=== PATIENT | female | born 1990 | race Caucasian/White ===

== ENCOUNTER 2020-07-18 16:19 | Emergency (ER) | payer BC, SELFPAY ==
[2020-07-18 16:23] VITALS: BP 136/95; PULSE 102; RESP 20; TEMP 35.8; O2SAT 100
--- NOTE | 2020-07-18 16:49 | ED.FEMALEGU ---
HPI - Female Genitourinary General Chief complaint: Vaginal Bleeding Stated complaint: vaginal bleeding post surgery 2/4 Time Seen by Provider: 07/18/20 16:31 Source: patient Mode of arrival: ambulatory Limitations: no limitations History of Present Illness HPI Narrative: A 30-year-old female comes into the emergency department today with complaints of vaginal bleeding. Patient states that it started today and was very heavy. She noted that she had a recent LEEP procedure done on the fourth of this month. Patient states that she had minimal bleeding after the procedure. She states starting today that the bleeding got much heavier. She notes that she has been through 3 pads/tampons earlier today. She notes several clots that have been passed. Related Data Allergies Allergy/AdvReac Type Severity Reaction Status Date / Time ciprofloxacin Allergy Mild Verified 03/24/19 14:47 azithromycin Allergy Unknown eye Verified 03/24/19 14:47 swelling Penicillins Allergy Unknown Verified 03/24/19 14:47 CIPROFLOXACIN HCL Allergy Mild Uncoded 03/24/19 14:47 Review of Systems Review of Systems: Narrative: CONSTITUTIONAL: Denies fever, chills, or sweats. EYES: Denies visual changes, redness, or discharge. ENT: Denies rhinorrhea, congestion, sore throat, or otalgia. CARDIOVASCULAR: Denies chest pain, palpitations, or edema. RESPIRATORY: Denies cough or dyspnea. GASTROINTESTINAL: Denies abdominal pain, nausea, vomiting, or diarrhea. GENITOURINARY: Denies dysuria or hematuria. SKIN: Denies rash or itching. MUSCULOSKELETAL: Denies back pain, joint pain, or myalgia. NEUROLOGIC: Denies headache, numbness, dizziness, or weakness. PSYCHIATRIC: Denies anxiety or depression. Exam Narrative: Exam Narrative: GENERAL: Well-appearing, well-nourished, and in no acute distress. HEAD: Normocephalic, atraumatic. EYES: PERRLA and EOMI. ENT: Nares clear, no rhinorrhea or epistaxis. Mucous membranes moist. Oropharynx without tonsillar hypertrophy exudate or other lesions. Bilateral TMs pearly buckner nonbulging NECK: Supple. No adenopathy or masses. No carotid bruits or JVD CHEST: Clear to auscultation. No respiratory distress. No wheezes rales or rhonchi HEART: Regular rate and rhythm. No murmur heard. Normal peripheral pulses. ABDOMEN: Soft, nontender, nondistended, normal active bowel sounds. : Chaperoned by TOOTIE Andino. Normal externa genitalia. Large amount of blood and clots within vaginal vault. After evacuation, bleed seen coming through os, LEEP scarring seen. No to minimal bleeding from cervix. EXTREMITIES: Normal range of motion. No edema. SKIN: Warm, dry, no rash. NEURO: No focal deficits. Alert and oriented x3. PSYCH: Normal mood and affect. Course Reevaluation(s) Reevaluation #1: Reevaluated patient provided care update. Discussed the lab results with her. At this time I feel she is safe to discharge. Patient recommended to follow-up with her surgeon. Time: 17:43 Vital Signs Vital signs: Vital Signs Temperature 35.8 C L 07/18/20 16:23 Pulse Rate 102 H 07/18/20 16:23 Respiratory Rate 20 07/18/20 16:23 Blood Pressure 136/95 H 07/18/20 16:23 Pulse Oximetry 100 07/18/20 16:23 Temperature 35.8 C L 07/18/20 16:23 Pulse Rate 102 H 07/18/20 16:23 Respiratory Rate 20 07/18/20 16:23 Blood Pressure 136/95 H 07/18/20 16:23 Pulse Oximetry 100 07/18/20 16:23 MDM - Female Genitourinary MDM Narrative Medical decision making narrative: In brief this 30-year-old female came into the emergency department with complaints of heavy vaginal bleeding. Patient recently had a LEEP procedure. She also had her Mirena removed prior to this. Review of the patient's laboratory data was reassuring. Pelvic examination did show that the bleeding appeared to me to be coming through the os rather than from the cervix. I feel that because of the patient's Mirena removal and that withdrawal from the hormones she is likely starting a me
[2020-07-18 17:02] LABS: Basophils Absolute Auto 0.1 K/mm3 (0.0-0.1); Basophils Percent Auto 0.4 % (0.2-1.2); Eosinophils Absolute Auto 0.1 K/mm3 (0-0.3); Eosinophils Percent Auto 0.9 % (0-4.4); Hematocrit 47.6 % (37.0-47.0); Hemoglobin 16.5 g/dL (12.0-15.0); Immature Granulocyte Absolute 0.04 K/mm3 (0.00-0.031); Immature Granulocyte Percent A 0.3 % (0-0.5); Lymphocytes Absolute Auto 2.23 K/mm3 (0.9-3.2); Lymphocytes Percent Auto 15.8 % (18.3-44.2); Mean Corpuscular HGB Conc 34.7 g/dl (32-36); Mean Corpuscular Hemoglobin 36.1 pg (26-34); Mean Corpuscular Volume 104.2 fl (80-100); Mean Platelet Volume 11.2 fl (7.4-10.4); Monocytes Absolute Auto 0.6 K/mm3 (0.1-0.6); Monocytes Percent Auto 4.3 % (2.6-8.5); Neutrophils Percent Auto 78.3 % (45.5-73.1); Platelet Count Result 198 k/mm3 (150-375); Red Blood Count 4.57 M/mm3 (4.2-5.4); Red Cell Distribution Width 13.1 % (11.5-14.5); White Blood Count 14.1 K/mm3 (4.5-10.0)
[2020-07-18 17:22] LABS: Alanine Aminotransferase 33 U/L (4-35); Albumin Level 4.6 g/dL (3.5-5.1); Alkaline Phosphatase 108 U/L (38-126); Anion Gap 5 mmol/L (8-16); Aspartate Amino Transferase 32 U/L (14-36); Bilirubin,Total 0.5 mg/dL (0.2-1.3); Blood Urea Nitrogen 10 mg/dL (7-17); Calcium 9.7 mg/dL (8.4-10.2); Carbon Dioxide 30 mmol/L (22-30); Chloride 104 mmol/L (98-107); Estimated CRCL calculation 99 ml/min; Estimated Glomerular Filt Rate > 60; Glucose 110 mg/dL (65-105); Sodium 139 mmol/L (137-145)
[2020-07-18 17:30] LABS: Potassium 3.5 mmol/L (3.4-5.0)
[2020-07-18 17:44] LABS: Add Urine Microscopic? YES; Appearance Urine Cloudy (Clear); Bilirubin Urine Negative (Negative); Blood Urine 3+ (Negative); Color Urine Red (Yellow); Glucose Urine UA Negative (Negative); Ketones Urine Negative (Negative); Leukocyte Esterase Ur Trace LEU/UL (Negative); Mucus Urine Few /lpf; Nitrate Urine Negative (Negative); Protein Urine 2+ mg/dL (Negative); RBC Urine >75 /hpf (0-2); Specific Grav Ur 1.023 (1.001-1.035)
[2020-07-18 17:52] VITALS: BP 133/94; PULSE 97; O2SAT 98
== END 2020-07-18 17:53 | disposition home or self-care (01) ==
PROVIDERS: Emergency Provider Emergency Medicine; PCP Internal Medicine
DX: N93.8 Other specified abnormal uterine and vaginal bleeding (principal)
CPT/HCPCS: 36415; 80053; 81001; 81025; 85025; 99283; A9270

== ENCOUNTER 2020-10-25 11:48 | Inpatient (IN) | payer BC, SELFPAY ==
[2020-10-25] VITALS (22 sets, daily range): BP systolic 107–118; BP diastolic 68–83; PULSE 110–135; RESP 14–32; TEMP 36.2–37.1; O2SAT 97–100; BMI 22.5
--- NOTE | ~2020-10-25 | US_ITS ---
EXAMINATION: US abdomen limited DATE: 10/29/2020 10:01 INDICATION: Abnormal liver function tests. TECHNIQUE: Multiple grayscale and Doppler ultrasound images of the abdomen were obtained. COMPARISON: CT abdomen and pelvis 10/28/2020 FINDINGS: The visualized portions of the head, body, and tail of the pancreas are normal. The liver i s normal without focal lesion. No liver surface nodularity. There is normal flow in main portal vein. The gallbladder is normal in size and contains gallstones. No gallbladder wall thickening. There is no sonographic Telles sign. The common duct is normal and measures 2 mm. IMPRESSION: 1. Cholelithiasis. No evidence of acute cholecystitis. Reviewed, dictated and finalized at location A.
--- NOTE | ~2020-10-25 | US_ITS ---
EXAMINATION: US pelvic complete w TV DATE: 10/25/2020 15:23 INDICATION: Pelvic pain TECHNIQUE: Multiple transabdominal and endovaginal sonographic images of the pelvis were obtained. COMPARISON: CT from today FINDINGS: The uterus measures 7.9 x 4 x 4.7 cm. The endometrial complex measures 3 mm. The right ovar y measures 3.9 x 2.9 x 3.1 cm. The left ovary measures 3.2 x 2.1 x 2.5 cm. There is normal vascular f low in the ovaries. There is no free fluid in the pelvis. IMPRESSION: 1. No sonographic correlate for the patient's symptoms. Reviewed, dictated and finalized at location A.
--- NOTE | ~2020-10-25 | CT_ITS ---
EXAMINATION: CT abdomen pelvis w con INDICATION: Abdominal bloating and elevated liver function tests TECHNIQUE: Computed tomographic images of the abdomen and pelvis were obtained after the administrati on of 100 cc of Omnipaque 350 intravenous contrast. The dose-length product (DLP) was 416.73 mGy-cm. Automated exposure control and iterative reconstruction technique were employed. COMPARISON: 10/25/2020 FINDINGS: Minimal dependent atelectasis is present in the lung bases. The heart size is normal. There are small pleural effusions. The liver, spleen, pancreas, and adrenal glands are normal. There is un changed enlargement of the kidneys which demonstrate persistence striated nephrograms. There is persi stent urothelial enhancement of the ureters and renal pelves. A small amount of ascites has developed . No pathologically enlarged abdominal or pelvic lymph nodes are identified. There is no free intrape ritoneal gas or evidence of bowel obstruction. The visualized osseous structures are unremarkable. IMPRESSION: 1. Persistent bilateral pyelonephritis. Reviewed, dictated and finalized at location A.
--- NOTE | ~2020-10-25 | XR_ITS ---
EXAMINATION: XR chest 1V portable DATE: 10/25/2020 13:04 INDICATION: Fever. TECHNIQUE: A single frontal view of the chest was obtained. COMPARISON: Chest 2 views 09/17/2014 FINDINGS: The chest demonstrates clear lungs without pneumonia, pleural effusion, or pneumothorax. Th e heart size is normal. IMPRESSION: 1. No acute cardiopulmonary disease. Reviewed, dictated and finalized at location B.
--- NOTE | ~2020-10-25 | CT_ITS ---
EXAMINATION: CTA chest PE abdomen pel DATE: 10/25/2020 14:30 INDICATION: Pelvic cramping. Dizziness. Fever. Tachycardia. TECHNIQUE: Computed tomography angiography (CTA) of the chest was performed with 100 mL Omnipaque-350 intravenous contrast timed to evaluate the pulmonary arteries. Coronal maximum intensity projection 3D-reconstructions were created by the technologist. Computed tomography (CT) of the abdomen and pelv is was performed with intravenous contrast. Automated exposure control and iterative reconstruction t echnique were employed. The dose-length product was 539.21 mGy-cm. COMPARISON: None. FINDINGS: CTA chest: There is mild scarring at the lung apices. There is mild dependent atelectasis bilaterally . There is a pneumatocele in left upper lobe. No pleural effusion. The heart size is normal. No peric ardial effusion. There is no pulmonary embolus. CT abdomen and pelvis: The liver, gallbladder, spleen, pancreas, and adrenal glands are normal. The k idneys demonstrate striated nephrograms. There is urothelial hyperemia in the renal pelvises. There a re no dilated loops of bowel. The appendix is normal. There are no pathologically enlarged lymph node s. There is no free intraperitoneal fluid. The bones are unremarkable. IMPRESSION: 1. Bilateral pyelonephritis. 2. No pulmonary embolus. Reviewed, dictated and finalized at location B.
--- NOTE | ~2020-10-25 | US_ITS ---
EXAMINATION: US venous doppler [facility] DATE: 10/26/2020 10:12 INDICATION: Tachycardia TECHNIQUE: Kaba scale images without and with compression and Doppler images of the bilateral lower e xtremity veins were obtained. COMPARISON: None FINDINGS: The right common femoral vein, profunda femoral vein, femoral vein, popliteal vein, peroneal trunk, p osterior tibial veins, and greater saphenous vein are patent. The left common femoral vein, profunda femoral vein, femoral vein, popliteal vein, peroneal trunk, po sterior tibial veins, and greater saphenous vein are patent. IMPRESSION: 1. Patent bilateral lower extremity veins. No evidence of deep venous thrombosis. Reviewed, dictated and finalized at location A. IMPRESSION: 1. Patent bilateral lower extremity veins. No evidence of deep venous thrombosi s.
[2020-10-25 12:15] LABS: Basophils Absolute Auto 0.1 K/mm3 (0.0-0.1); Basophils Percent Auto 0.4 % (0.2-1.2); Eosinophils Absolute Auto 0.1 K/mm3 (0-0.3); Eosinophils Percent Auto 0.4 % (0-4.4); Hematocrit 35.9 % (37.0-47.0); Hemoglobin 12.7 g/dL (12.0-15.0); Immature Granulocyte Absolute 1.14 K/mm3 (0.00-0.031); Immature Granulocyte Percent A 8.2 % (0-0.5); Lymphocytes Absolute Auto 0.62 K/mm3 (0.9-3.2); Lymphocytes Percent Auto 4.5 % (18.3-44.2); Mean Corpuscular HGB Conc 35.4 g/dl (32-36); Mean Corpuscular Hemoglobin 36.9 pg (26-34); Mean Corpuscular Volume 104.4 fl (80-100); Monocytes Absolute Auto 0.5 K/mm3 (0.1-0.6); Monocytes Percent Auto 3.3 % (2.6-8.5); Neutrophils Absolute Auto 11.6 K/mm3 (1.3-6.7); Neutrophils Percent Auto 83.2 % (45.5-73.1); Platelet Count Result 144 k/mm3 (150-375); Red Blood Count 3.44 M/mm3 (4.2-5.4); Red Cell Distribution Width 15.6 % (11.5-14.5); White Blood Count 13.9 K/mm3 (4.5-10.0)
--- NOTE | 2020-10-25 12:18 | ED.ABDPAIN ---
HPI - Abdominal Pain General Chief Complaint: Abdominal Pain Stated Complaint: cramping, fever, DENT Time Seen by Provider: 10/25/20 11:55 Source: patient and RN notes reviewed Mode of arrival: ambulatory Limitations: no limitations History of Present Illness HPI narrative: This is a 30 year old female who presents for evaluation fever and abdominal pain since Sunday. She states she had a tubal ligation performed on 09/09/[address] Foreman at [place]. She reports she has been doing well and she had some mild bleeding. She denies having any bleeding or vaginal discharge in a 1 week. She states she has been having lower abdominal pain that she describes severe menstrual cramps. She is reports chills, fatigue and fever. She denies chest pain or shortness of breath. she has noticed that her heart rate is fast. She also reports body aches. She has been taking alternating doses of tylenol and ibuprofen for her fever . She last took tylenol at 4 am this morning and she took ibuprofen at 9 am this morning. She reports having a fever at time. Related Data Allergies Allergy/AdvReac Type Severity Reaction Status Date / Time azithromycin Allergy Severe Anaphylaxis Verified 10/25/20 18:14 ciprofloxacin Allergy Mild Difficulty Verified 10/25/20 18:14 Breathing Penicillins Allergy Mild Hives Verified 10/25/20 18:14 cephalexin [From Keflex] Allergy Blurry Verified 10/25/20 18:14 Vision Review of Systems Review of Systems: All systems reviewed & are unremarkable except as noted in HPI and below Constitutional: Constitutional: Reports chills, Reports fatigue and Reports fever(s) ENT: Denies sore throat Cardiovascular: Cardiovascular: Denies chest pain and Reports rapid heart rate Respiratory: Respiratory: Reports cough, Denies dyspnea and Denies wheezing Gastrointestinal: Gastrointestinal: Reports abdominal pain, Denies diarrhea and Denies vomiting Musculoskeletal: Musculoskeletal: Denies back pain and Reports muscle cramps Neurologic: Reports headache(s) Endocrine: Endocrine: Reports polydipsia PMFSH Surgical History Surgical History H/O LEEP H/O tubal ligation Social History Social History Years smoked: 15 Smoking status: Current every day smoker Tobacco type: cigarettes Alcohol intake: never Substance use: never Spiritual care concerns: No Exam Const: General: no acute distress and alert Orientation/consciousness: patient oriented x3 Eyes: EOM: EOMs intact bilaterally Chest: Chest palpation & inspection: normal inspection of the chest Resp: Effort & Inspection: normal respiratory effort and no retractions Auscultation: clear to auscultation bilaterally Cardio: Rate: regular rate Rhythm: regular rhythm Heart sounds: no murmurs GI: GI Palp: Yes Soft to palpation, Yes Tenderness to palpation present (GI) and No Guarding due to palpation present (GI) Auscultation: normal bowel sounds : Speculum Exam - Vagina: normal vaginal discharge Speculum Exam - Cervix: normal appearance of the cervix and Cervical os closed Bimanual Exam- Adnexa, other: no masses Other: no CMT Back/Spine/Pelvis: Back: no CVA tenderness Skin: General skin exam: normal color Rashes: no rashes Neuro: General: patient oriented x3, moves all extremities and CN's II-XI intact bilaterally Course Reevaluation(s) Reevaluation #1: Patient has received IVF, potassium supplementation, IV antibiotics. HR had some mild improvement but she continues to be tachycardic. She is nontoxic appearing so she will be admitted to medical floor at this time. pelvic cultures will be sent. Date: 10/25/20 Time: 15:45 Consultations Consultation #1: I Discussed with Fatuma patient evaluation. She has been tachycardia with pyelonephritis on CT. She has been given rocephin. She accepts patient to hospitalist taryn
[2020-10-25 12:25] LABS: Alanine Aminotransferase 13 U/L (4-35); Albumin Level 3.6 g/dL (3.5-5.1); Alkaline Phosphatase 177 U/L (38-126); Anion Gap 7 mmol/L (8-16); Aspartate Amino Transferase 23 U/L (14-36); Bilirubin,Total 0.9 mg/dL (0.2-1.3); Blood Urea Nitrogen 17 mg/dL (7-17); Calcium 9.3 mg/dL (8.4-10.2); Carbon Dioxide 28 mmol/L (22-30); Chloride 96 mmol/L (98-107); Estimated CRCL calculation 59 ml/min; Estimated Glomerular Filt Rate 58; Glucose 95 mg/dL (65-105); Lipase 30 U/L (23-300); Potassium 2.9 mmol/L (3.4-5.0); Sodium 131 mmol/L (137-145)
[2020-10-25] MEDS: ONDANSETRON INJ 4 MG/2 ML VIAL IV PUSH (12:55)
[2020-10-25] MEDS: SODIUM CHLORIDE 0.9% IV 1,000 ML 999 ML IV CONT ×2 (12:55→13:54)
[2020-10-25 13:00] LABS: Add Urine Microscopic? YES; Appearance Urine Clear (Clear); Bacteria Urine Trace /hpf; Bilirubin Urine Negative (Negative); Blood Urine 1+ (Negative); Color Urine Yellow (Yellow); Glucose Urine UA Negative (Negative); Ketones Urine Negative (Negative); Leukocyte Esterase Ur 1+ LEU/UL (Negative); Nitrate Urine Negative (Negative); Protein Urine 1+ mg/dL (Negative); Specific Grav Ur 1.006 (1.001-1.035); Squamous Epithelial Cell Urine Rare /hpf (Few); Urobilinogen Urine Negative mg/dL (<2.0)
[2020-10-25 13:02] LABS: Lactic Acid Reflex 1.1 mmol/L (0.7-2.1)
--- NOTE | 2020-10-25 13:14 | PC.NURSE ---
called main lab @1300 talked to lilo to add ck, pt, inr, ptt, d-dimer
[2020-10-25 13:22] LABS: Prothrombin Time 13.9 Seconds (11.1-14.7)
[2020-10-25 13:23] LABS: Creatine Kinase < 20 U/L (30-135)
[2020-10-25 13:23] LABS: Partial Thromboplastin Time 36.3 SECONDS (22.3-36.8)
[2020-10-25 13:25] LABS: D Dimer 2.47 ug/mL (<0.48)
[2020-10-25] MEDS: LACTATED RINGERS 1,000 ML 999 ML IV CONT (15:32)
--- NOTE | 2020-10-25 16:19 | PC.NURSE ---
EDP at bedside for pelvic exam.
[2020-10-25] MEDS: POTASSIUM CHLORIDE 20 MEQ TABLET 40 MEQ PO (16:20)
[2020-10-25] MEDS: IBUPROFEN IV 800 MG/200 ML 800 MG/200 ML BAG 400 MG IVPB (16:20)
--- NOTE | 2020-10-25 18:04 | ADMGEN ---
This patient, Judy Davis, was admitted to 2 Medical Room 253-01. Patient/family oriented to hospital policies and general routines including ID bracelet, bed and alarms, visiting hours, pain management, procedures, bathroom and other care routines, personal items, smoking policy, room service/diet, and visiting hours. Information on how to activate the Rapid Response Team has been discussed. Patient/Family are encouraged to report perceived risks to care and to ask questions if they do not understand what they are told or what they should do.
[2020-10-25] MEDS: LACTATED RINGERS 1,000 ML 125 ML IV CONT (18:19)
--- NOTE | 2020-10-25 21:24 | PM.IMHP ---
H&P: HPI History of Present Illness Date/Time: 10/25/20 21:24 Chief Complaint: Abdominal cramps Narrative: This is a 30-year-old female with known significant past medical history patient is a current everyday smoker she used to smoke a pack to 2 packs a day but now is down to 5 cigarettes daily sometimes down to 4 cigarettes. Patient presented today to the emergency room due to having abdominal cramps for the last 3 days decreased appetite fevers chills lower back pain some nausea but no vomiting no diarrhea no cough no sputum production no shortness of breath. Patient has been in her usual state of health up until these. Preliminary workup was significant for CT of thorax abdomen and pelvis with bilateral pyelonephritis. Also a BMP showed a potassium of 2.9. A trans vaginal ultrasound was unremarkable. Review of Systems Review of Systems: Narrative: Patient presented to the emergency room due to abdominal pain and back pain fevers chills decreased appetite Constitutional: Constitutional: Reports chills, Reports fever(s) and Reports poor appetite Eyes: Eyes: Denies change in vision ENT: Denies nasal congestion, Denies nasal discharge and Denies nasal obstruction Cardiovascular: Cardiovascular: Denies irregular heart rhythm, Denies lightheadedness, Denies palpitations and Denies dyspnea Respiratory: Respiratory: Denies cough, Denies dyspnea and Denies wheezing Gastrointestinal: Gastrointestinal: Reports abdominal pain, Reports GI cramping, Denies diarrhea, Reports nausea and Denies vomiting Genitourinary: Genitourinary: Reports flank pain Musculoskeletal: Musculoskeletal: Denies muscle cramps and Denies muscle weakness Integumentary/Breasts: Skin/Breast: Denies rash Neurologic: Denies focal weakness and Denies Sensory deficit (Neuro) Psychiatric: Psychiatric: Denies no additional psychiatric complaints Endocrine: Endocrine: Denies no additional endocrine complaints Hematologic/Lymphatic: Hematologic/Lymphatic: Denies no additional hematologic/lymphatic complaints Allergic/Immunologic: Allergic/Immunologic: Denies no additional allergic/immunologic complaints [facility] Surgical History Surgical History H/O LEEP H/O tubal ligation Social History Social History Years smoked: 15 Smoking status: Current every day smoker Tobacco type: cigarettes Alcohol intake: never Substance use: never Spiritual care concerns: No Meds Home Medications and Allergies Allergies Allergy/AdvReac Type Severity Reaction Status Date / Time azithromycin Allergy Severe Anaphylaxis Verified 10/25/20 18:14 ciprofloxacin Allergy Mild Difficulty Verified 10/25/20 18:14 Breathing Penicillins Allergy Mild Hives Verified 10/25/20 18:14 cephalexin [From Keflex] Allergy Blurry Verified 10/25/20 18:14 Vision Vital Signs Vital Signs - 24 hr 10/25/20 11:50 10/25/20 11:58 10/25/20 11:59 Temperature 98.7 F Pulse Rate 135 H 132 H 134 H Respiratory Rate 16 21 H 18 Blood Pressure 113/79 118/83 Pulse Oximetry 100 10/25/20 12:00 10/25/20 12:01 10/25/20 12:15 Temperature Pulse Rate 131 H 130 H 132 H Respiratory Rate 19 20 20 Blood Pressure 109/79 Pulse Oximetry 10/25/20 12:16 10/25/20 12:22 10/25/20 12:31 Temperature 98.7 F Pulse Rate 133 H 112 H 129 H Respiratory Rate 17 16 22 H Blood Pressure 107/76 113/79 108/79 Pulse Oximetry 99 10/25/20 14:32 10/25/20 14:45 10/25/20 15:16 Temperature Pulse Rate 122 H 120 H 124 H Respiratory Rate 20 18 32 H Blood Pressure Pulse Oximetry 98 97 98 10/25/20 15:35 10/25/20 15:49 10/25/20 16:13 Temperature Pulse Rate 123 H 125 H 128 H Respiratory Rate 23 H 25 H 20 Blood Pressure Pulse Oximetry 99 99 100 10/25/20 16:15 10/25/20 16:24 10/25/20 16:30 Temperature Pulse Rate 128 H 124 H 122 H Respiratory Rate 20 24 H 25
[2020-10-26] VITALS (13 sets, daily range): BP systolic 106–133; BP diastolic 68–86; PULSE 99–130; RESP 12–21; TEMP 36.3–38.5; O2SAT 95–100
[2020-10-26] MEDS: LACTATED RINGERS 1,000 ML 125 ML IV CONT ×3 (02:51→20:16)
[2020-10-26 05:18] LABS: Basophils Absolute Auto 0.1 K/mm3 (0.0-0.1); Basophils Percent Auto 0.5 % (0.2-1.2); Eosinophils Percent Auto 0.2 % (0-4.4); Hematocrit 30.8 % (37.0-47.0); Hemoglobin 11.1 g/dL (12.0-15.0); Immature Granulocyte Absolute 0.14 K/mm3 (0.00-0.031); Immature Granulocyte Percent A 1.1 % (0-0.5); Immature Platelet Fraction Pct 5.9 % (0.9-11.2); Lymphocytes Absolute Auto 0.56 K/mm3 (0.9-3.2); Lymphocytes Percent Auto 4.2 % (18.3-44.2); Mean Corpuscular Hemoglobin 37.2 pg (26-34); Mean Corpuscular Volume 103.4 fl (80-100); Mean Platelet Volume 11.3 fl (7.4-10.4); Monocytes Absolute Auto 0.6 K/mm3 (0.1-0.6); Monocytes Percent Auto 4.5 % (2.6-8.5); Neutrophils Absolute Auto 11.8 K/mm3 (1.3-6.7); Neutrophils Percent Auto 89.5 % (45.5-73.1); Platelet Count Result 121 k/mm3 (150-375); Red Blood Count 2.98 M/mm3 (4.2-5.4); Red Cell Distribution Width 15.4 % (11.5-14.5); White Blood Count 13.2 K/mm3 (4.5-10.0)
[2020-10-26 05:29] LABS: Alanine Aminotransferase 14 U/L (4-35); Albumin Level 2.5 g/dL (3.5-5.1); Alkaline Phosphatase 190 U/L (38-126); Anion Gap 6 mmol/L (8-16); Aspartate Amino Transferase 31 U/L (14-36); Bilirubin,Total 1.5 mg/dL (0.2-1.3); Blood Urea Nitrogen 13 mg/dL (7-17); Calcium 8.4 mg/dL (8.4-10.2); Carbon Dioxide 22 mmol/L (22-30); Chloride 107 mmol/L (98-107); Estimated CRCL calculation 64 ml/min; Estimated Glomerular Filt Rate > 60; Glucose 72 mg/dL (65-105); Potassium 3.1 mmol/L (3.4-5.0); Sodium 135 mmol/L (137-145)
[2020-10-26] MEDS: POTASSIUM CHLORIDE 20 MEQ TABLET 40 MEQ PO (08:41)
--- NOTE | 2020-10-26 11:10 | PM.IMPN ---
Progress Note: A&P Assessment and Plan (1) Pyelonephritis: Code(s): N12 - Tubulo-interstitial nephritis, not specified as acute or chronic Status: Acute Assessment and Plan: CT showing pyelonephritis -UA somewhat underwhelming, await urine culture -blood cultures pending -no urinary symptoms, positive CVA tenderness -last fever 10/26 at 4:00 a.m. -await urine culture and sensitivities. Continue ceftriaxone -consider infectious disease consult if she does not improve -Pain meds adjusted (2) Sepsis: Code(s): A41.9 - Sepsis, unspecified organism Status: Acute Assessment and Plan: Evident by leukocytosis, tachycardia, and fever -likely due to pyelonephritis as seen on the CT and consistent with her symptoms on exam -blood cultures pending -patient had a tubal ligation last month and has poor dentition. The seem less likely to be causing the fever/infection. -await urine culture -consider infectious disease consult if patient does not improve -elevated D-dimer likely due to infection/sepsis. No sign of PE or DVT. (3) ERWIN (acute kidney injury): Code(s): N17.9 - Acute kidney failure, unspecified Status: Acute Assessment and Plan: Improving -continue IV fluids -monitor daily labs (4) Tobacco dependence: Code(s): F17.200 - Nicotine dependence, unspecified, uncomplicated Status: Acute Assessment and Plan: Nicotine patch as needed -patient was educated to quit smoking Time Spent With Patient Time with patient: 25 - 35 minutes Subjective Date/time seen: 10/26/20 11:10 Interval history: Pt is a 30-year-old female here for pyelonephritis. Patient was seen today and states she is feeling better than yesterday but still in pain. She said most of her pain is now her back. She has no further abdominal cramping but just mostly back pain. She describes yesterday that she had abdominal cramping and back pain. She has had no dysuria or hematuria that she knows of. She also denies vaginal discharge, bleeding or new sexual partners. She continues to have his tachycardia but no chest pain, shortness of breath, nausea, vomiting or leg swelling. She said she had a tubal ligation early last month with no real issues with that. She has had a bit of a headache which resolved with tylenol yesterday. Review of Systems Review of Systems: All systems reviewed & are unremarkable except as noted in HPI and below Exam Narrative: Exam Narrative: General: Well developed well nourished patient in NAD HEENT: normocephalic Neck: supple Neuro: Alert and oriented x4 CV: Tachycardic. Telemetry shows sinus tachycardia 118 Resp:CTA Abd: Soft, non distended. Some pain to palpation to the left and right lower quadrants. Positive bowel sounds. Positive CVA tenderness Extremities: No swelling, erythema, or pain to palpation. Objective Data Vital Signs Vital Signs: Vital Signs - 24 hr 10/25/20 11:50 10/25/20 11:58 10/25/20 11:59 Temperature 98.7 F Pulse Rate 135 H 132 H 134 H Respiratory Rate 16 21 H 18 Blood Pressure 113/79 118/83 Pulse Oximetry 100 10/25/20 12:00 10/25/20 12:01 10/25/20 12:15 Temperature Pulse Rate 131 H 130 H 132 H Respiratory Rate 19 20 20 Blood Pressure 109/79 Pulse Oximetry 10/25/20 12:16 10/25/20 12:22 10/25/20 12:31 Temperature 98.7 F Pulse Rate 133 H 112 H 129 H Respiratory Rate 17 16 22 H Blood Pressure 107/76 113/79 108/79 Pulse Oximetry 99 10/25/20 14:32 10/25/20 14:45 10/25/20 15:16 Temperature Pulse Rate 122 H 120 H 124 H Respiratory Rate 20 18 32 H Blood Pressure Pulse Oximetry 98 97 98 10/25/20 15:35 10/25/20 15:49 10/25/20 16:13 Temperature Pulse Rate 123 H 125 H 128 H Respiratory Rate 23 H 25 H 20 Blood Pressure Pulse Oximetry 99 99 100 10/25/20 16:15 10/25/20 16:24 10/25/20 16:30 Temperature Pulse Rate 128 H 124 H 122 H Respiratory Rat
[2020-10-26] MEDS: ACETAMINOPHEN 325 MG TABLET 650 MG PO (15:34)
[2020-10-26] MEDS: HYDROcodone/acetaminophen (*CRX) 5-325 MG TABLET 1 TAB PO (17:24)
[2020-10-26] MEDS: ONDANSETRON INJ 4 MG/2 ML VIAL IV PUSH (17:24)
[2020-10-27] VITALS (9 sets, daily range): BP systolic 120–130; BP diastolic 70–85; PULSE 90–119; RESP 16–20; TEMP 37.3–38.3; O2SAT 94–98
[2020-10-27] MEDS: HYDROcodone/acetaminophen (*CRX) 5-325 MG TABLET 1 TAB PO ×3 (02:01→18:31)
[2020-10-27] MEDS: ACETAMINOPHEN 325 MG TABLET 650 MG PO ×2 (03:00→20:45)
[2020-10-27] MEDS: LACTATED RINGERS 1,000 ML 125 ML IV CONT (03:50)
[2020-10-27 05:39] LABS: Basophils Absolute Auto 0.1 K/mm3 (0.0-0.1); Basophils Percent Auto 0.5 % (0.2-1.2); Eosinophils Percent Auto 0.3 % (0-4.4); Hematocrit 29.5 % (37.0-47.0); Hemoglobin 10.4 g/dL (12.0-15.0); Immature Granulocyte Absolute 0.15 K/mm3 (0.00-0.031); Immature Granulocyte Percent A 1.2 % (0-0.5); Immature Platelet Fraction Pct 6.4 % (0.9-11.2); Lymphocytes Absolute Auto 1.54 K/mm3 (0.9-3.2); Lymphocytes Percent Auto 12.7 % (18.3-44.2); Mean Corpuscular HGB Conc 35.3 g/dl (32-36); Mean Corpuscular Hemoglobin 35.9 pg (26-34); Mean Corpuscular Volume 101.7 fl (80-100); Mean Platelet Volume 11.2 fl (7.4-10.4); Monocytes Absolute Auto 0.8 K/mm3 (0.1-0.6); Monocytes Percent Auto 6.3 % (2.6-8.5); Neutrophils Absolute Auto 9.6 K/mm3 (1.3-6.7); Platelet Count Result 120 k/mm3 (150-375); Red Cell Distribution Width 15.7 % (11.5-14.5); White Blood Count 12.2 K/mm3 (4.5-10.0)
[2020-10-27 05:57] LABS: Anion Gap 6 mmol/L (8-16); Blood Urea Nitrogen 8 mg/dL (7-17); Calcium 8.1 mg/dL (8.4-10.2); Carbon Dioxide 24 mmol/L (22-30); Chloride 105 mmol/L (98-107); Estimated CRCL calculation 64 ml/min; Estimated Glomerular Filt Rate > 60; Glucose 97 mg/dL (65-105); Magnesium 1.7 mg/dL (1.6-2.3); Potassium 2.8 mmol/L (3.4-5.0); Sodium 135 mmol/L (137-145)
[2020-10-27] MEDS: POTASSIUM CHLORIDE 20 MEQ TABLET 80 MEQ PO (06:40)
[2020-10-27] MEDS: MAGNESIUM SULF 1 GM/D5W 100 ML 1 GM/100 ML BAG IVPB (09:03)
--- NOTE | 2020-10-27 12:40 | PM.IMPN ---
Progress Note: A&P Assessment and Plan (1) Pyelonephritis: Code(s): N12 - Tubulo-interstitial nephritis, not specified as acute or chronic Status: Acute Assessment and Plan: CT showing pyelonephritis -Urine cx growing pansensitive ecoli -blood cultures NGTD -no urinary symptoms, positive CVA tenderness -last fever 10/27 at 3:00 a.m. - Continue ceftriaxone -Pt now bloated but could be due to IV fluids. These have been stopped. If she continues to have fevers and bloating tomorrow, may consider re-scanning. (2) Sepsis: Code(s): A41.9 - Sepsis, unspecified organism Status: Acute Assessment and Plan: Evident by leukocytosis, tachycardia, and fever -likely due to pyelonephritis as seen on the CT and consistent with her symptoms on exam -blood cultures NGTD -patient had a tubal ligation last month and has poor dentition. They seem less likely to be causing the fever/infection. -elevated D-dimer likely due to infection/sepsis. No sign of PE or DVT. (3) ERWIN (acute kidney injury): Code(s): N17.9 - Acute kidney failure, unspecified Status: Acute Assessment and Plan: Improving -stop IV fluids -monitor daily labs (4) Tobacco dependence: Code(s): F17.200 - Nicotine dependence, unspecified, uncomplicated Status: Acute Assessment and Plan: Nicotine patch as needed -patient was educated to quit smoking (5) Strep throat: Code(s): J02.0 - Streptococcal pharyngitis Status: Acute Assessment and Plan: Pt receiving ceftriaxone and has no throat pain today (6) Sinus tachycardia: Code(s): R00.0 - Tachycardia, unspecified Status: Acute Assessment and Plan: Improving, likely due to infection -usually runs on the higher end of normal -no CP or signs of HF (7) Hypokalemia: Code(s): E87.6 - Hypokalemia Status: Acute Assessment and Plan: 2.8 today -potassium and mag given -repeat at 2 -likely due to IV fluids and decreased appetite Subjective Date/time seen: 10/27/20 12:40 Interval history: Pt is a 30-year-old female here for pyelonephritis. Patient was seen today and states she is doing about the same. She continues to have back pain and thinks it is a little better. She has noticed today that she is more bloated than she usually is. This is not normal for her. She has been urinating as usual. She had a BM today without constipation or diarrhea. She is eating and drinking okay. She denies CP or SOB. She had a fever early this morning. No throat pain. Exam Narrative: Exam Narrative: General: Well developed well nourished patient in NAD HEENT: normocephalic Neck: supple Neuro: Alert and oriented x4 CV: HR upper limits of normal on exam 98 (improved) Telemetry shows sinus tachycardia that was improved Resp:CTA Abd: Soft, partially distended. Some pain to palpation to the left and right lower quadrants. Positive bowel sounds. Positive CVA tenderness Extremities: No swelling, erythema, or pain to palpation. Objective Data Vital Signs Vital Signs: Vital Signs - 24 hr 10/26/20 14:00 10/26/20 15:34 10/26/20 16:30 Temperature 100.6 F H 101.3 F H 99.6 F Pulse Rate 112 H Respiratory Rate 18 Blood Pressure 133/86 Pulse Oximetry 97 10/26/20 20:00 10/26/20 22:00 10/27/20 00:00 Temperature 97.4 F L Pulse Rate 108 H 99 102 H Respiratory Rate 21 H Blood Pressure 113/77 Pulse Oximetry 100 10/27/20 03:00 10/27/20 03:53 10/27/20 04:00 Temperature 101 F H 99.1 F Pulse Rate 119 H Respiratory Rate Blood Pressure Pulse Oximetry 10/27/20 06:00 10/27/20 08:00 10/27/20 12:00 Temperature 99.6 F Pulse Rate 118 H 90 104 H Respiratory Rate 20 Blood Pressure 120/70 Pulse Oximetry 98 Intake/Output Intake/Output: Intake & Output 10/24/20 10/25/20 10/26/20 10/27/20 23:59 23:59 23:59 23:59 Intake Total 3450 49
[2020-10-27] MEDS: POTASSIUM CHLORIDE 20 MEQ PACKET (FOR LIQUID) PO (17:22)
[2020-10-27] MEDS: ONDANSETRON INJ 4 MG/2 ML VIAL IV PUSH (20:45)
[2020-10-28 06:00] VITALS: BP 131/87; PULSE 98; RESP 20; TEMP 40; O2SAT 98
[2020-10-28 06:13] LABS: Basophils Percent Auto 0.4 % (0.2-1.2); Eosinophils Absolute Auto 0.1 K/mm3 (0-0.3); Eosinophils Percent Auto 1.1 % (0-4.4); Hematocrit 29.1 % (37.0-47.0); Hemoglobin 10.3 g/dL (12.0-15.0); Immature Granulocyte Absolute 0.18 K/mm3 (0.00-0.031); Immature Platelet Fraction Pct 6.4 % (0.9-11.2); Lymphocytes Percent Auto 22.5 % (18.3-44.2); Mean Corpuscular HGB Conc 35.4 g/dl (32-36); Mean Corpuscular Hemoglobin 36.4 pg (26-34); Mean Corpuscular Volume 102.8 fl (80-100); Mean Platelet Volume 11.1 fl (7.4-10.4); Monocytes Absolute Auto 0.8 K/mm3 (0.1-0.6); Neutrophils Absolute Auto 5.8 K/mm3 (1.3-6.7); Platelet Count Result 153 k/mm3 (150-375); Red Blood Count 2.83 M/mm3 (4.2-5.4); Red Cell Distribution Width 15.9 % (11.5-14.5); White Blood Count 8.9 K/mm3 (4.5-10.0)
[2020-10-28 06:23] LABS: Alanine Aminotransferase 39 U/L (4-35); Albumin Level 2.6 g/dL (3.5-5.1); Alkaline Phosphatase 291 U/L (38-126); Anion Gap 7 mmol/L (8-16); Aspartate Amino Transferase 64 U/L (14-36); Bilirubin,Total 1.4 mg/dL (0.2-1.3); Blood Urea Nitrogen 5 mg/dL (7-17); Calcium 8.3 mg/dL (8.4-10.2); Carbon Dioxide 25 mmol/L (22-30); Chloride 104 mmol/L (98-107); Estimated CRCL calculation 71 ml/min; Estimated Glomerular Filt Rate > 60; Glucose 99 mg/dL (65-105); Magnesium 1.6 mg/dL (1.6-2.3); Sodium 136 mmol/L (137-145)
[2020-10-28 06:30] LABS: Transferrin 95 mg/dL (206-381)
[2020-10-28 06:42] LABS: Iron 28 ug/dL (37-170)
[2020-10-28 06:48] VITALS: TEMP 38
[2020-10-28] MEDS: ACETAMINOPHEN 325 MG TABLET 650 MG PO (06:48)
[2020-10-28 06:54] LABS: Percent Iron Saturation 17 % (20-50)
[2020-10-28 07:30] LABS: Folic Acid 5.8 ng/mL (2.76->20)
[2020-10-28 07:48] VITALS: TEMP 36.4
[2020-10-28 08:15] LABS: Free T4 Free Thyroxine Reflex 1.33 ng/dL (0.78-2.19)
[2020-10-28] MEDS: MAGNESIUM SULF 2 GM/WATER 50ML 2 GM/50 ML BAG IVPB (08:47)
[2020-10-28] MEDS: HYDROcodone/acetaminophen (*CRX) 5-325 MG TABLET 1 TAB PO ×2 (11:38→18:10)
[2020-10-28 12:07] LABS: Total Triiodothyronine (T3) 0.89 NG/ML (0.97-1.69)
[2020-10-28 14:00] VITALS: BP 128/82; PULSE 92; RESP 16; TEMP 36.9; O2SAT 100
--- NOTE | 2020-10-28 14:50 | PM.IMPN ---
Progress Note: A&P Assessment and Plan (1) Pyelonephritis: Code(s): N12 - Tubulo-interstitial nephritis, not specified as acute or chronic Status: Acute Assessment and Plan: CT x2 showing pyelonephritis -Urine cx growing pansensitive ecoli. Will resend urine cx due to persistent fevers -blood cultures NGTD, will redraw since pt is having persistent fevers -no urinary symptoms, positive CVA tenderness -last fever 10/28 at 6:00 a.m. - Continue ceftriaxone -Will expand w/u and draw HIV, hepatitis, and peripheral smear. (2) Sepsis: Code(s): A41.9 - Sepsis, unspecified organism Status: Acute Assessment and Plan: Evident by leukocytosis, tachycardia, and fever -likely due to pyelonephritis as seen on the CT and consistent with her symptoms on exam -blood cultures NGTD -patient had a tubal ligation last month and has poor dentition. They seem less likely to be causing the fever/infection. -elevated D-dimer likely due to infection/sepsis. No sign of PE or DVT. (3) ERWIN (acute kidney injury): Code(s): N17.9 - Acute kidney failure, unspecified Status: Acute Assessment and Plan: Resolved (4) Tobacco dependence: Code(s): F17.200 - Nicotine dependence, unspecified, uncomplicated Status: Acute Assessment and Plan: Nicotine patch as needed -patient was educated to quit smoking (5) Strep throat: Code(s): J02.0 - Streptococcal pharyngitis Status: Acute Assessment and Plan: Pt receiving ceftriaxone and has no throat pain today (6) Sinus tachycardia: Code(s): R00.0 - Tachycardia, unspecified Status: Acute Assessment and Plan: Improving, likely due to infection -usually runs on the higher end of normal -no CP or signs of HF (7) Hypokalemia: Code(s): E87.6 - Hypokalemia Status: Acute Assessment and Plan: 3.0 today -potassium and mag given -likely due to IV fluids and decreased appetite Subjective Date/time seen: 10/28/20 14:50 Interval history: Pt is a 30-year-old female here for pyelonephritis. Patient was seen today and continues to have fevers. She feels them come on and then it passes after medication. She still has the intermittent back pain that she says has improved since admission. She has no throat pain, diarrhea, DENT, CP or SOB. She still feels very 'full' but is eating and drinking okay. On further review, she denies sick contacts, HIV exposure, travel outside the of country, tick/bug bites, rashes or wounds. She has no neck pain. She drinks on average 3 alcoholic drinks a week socially. Exam Narrative: Exam Narrative: General: Well developed well nourished patient in NAD HEENT: normocephalic Neck: supple Neuro: Alert and oriented x4 CV: HR upper limits of normal on exam 92 (improved) Resp:CTA Abd: Soft, partially distended. Some pain to palpation to the left and right lower quadrants. Positive bowel sounds. Positive CVA tenderness Extremities: No swelling, erythema, or pain to palpation. Objective Data Vital Signs Vital Signs: Vital Signs - 24 hr 10/27/20 22:00 10/28/20 06:00 10/28/20 06:48 Temperature 99.5 F 104.0 F H 100.4 F H Pulse Rate 105 H 98 Respiratory Rate 18 20 Blood Pressure 130/85 131/87 Pulse Oximetry 96 98 10/28/20 07:48 10/28/20 14:00 Temperature 97.5 F L 98.5 F Pulse Rate 92 Respiratory Rate 16 Blood Pressure 128/82 Pulse Oximetry 100 Intake/Output Intake/Output: Intake & Output 10/25/20 10/26/20 10/27/20 10/28/20 23:59 23:59 23:59 23:59 Intake Total 3450 4950 3240 1770 Output Total 1450 3500 1800 Balance 3450 3500 -260 -30 Meds/Results Medications: Active Medications Generic Name Dose Route Start Last Admin Trade Name Freq PRN Reason Stop Dose Admin Acetaminophen 650 mg 10/26/20 10:30 10/28/20 06:48 Acetaminophen 325 Mg Tablet PO 650 mg Q6H PRN Administration
[2020-10-28 17:00] LABS: HIV 1/2 Ab P24 Ag Result Negative (Negative)
[2020-10-28 17:41] LABS: Add Urine Microscopic? NO; Appearance Urine Clear (Clear); Bilirubin Urine Negative (Negative); Blood Urine Negative (Negative); Color Urine Yellow (Yellow); Glucose Urine UA Negative (Negative); Ketones Urine Negative (Negative); Leukocyte Esterase Ur Negative LEU/UL (Negative); Nitrate Urine Negative (Negative); Protein Urine Negative (Negative); Specific Grav Ur 1.011 (1.001-1.035); Urobilinogen Urine Negative mg/dL (<2.0)
[2020-10-28 20:00] VITALS: PULSE 105; RESP 16; O2SAT 96
[2020-10-28 20:17] VITALS: BP 131/81; PULSE 105; RESP 16; TEMP 37.2; O2SAT 96
[2020-10-29 01:50] VITALS: TEMP 36.9
[2020-10-29 04:41] VITALS: BP 123/86; PULSE 88; RESP 16; TEMP 36.8; O2SAT 96
[2020-10-29 05:26] LABS: Basophils Percent Auto 0.6 % (0.2-1.2); Eosinophils Absolute Auto 0.1 K/mm3 (0-0.3); Eosinophils Percent Auto 1.2 % (0-4.4); Hematocrit 29.9 % (37.0-47.0); Hemoglobin 10.7 g/dL (12.0-15.0); Immature Granulocyte Absolute 0.15 K/mm3 (0.00-0.031); Immature Granulocyte Percent A 2.3 % (0-0.5); Lymphocytes Absolute Auto 2.16 K/mm3 (0.9-3.2); Lymphocytes Percent Auto 32.9 % (18.3-44.2); Mean Corpuscular HGB Conc 35.8 g/dl (32-36); Mean Corpuscular Volume 103.5 fl (80-100); Mean Platelet Volume 10.5 fl (7.4-10.4); Monocytes Absolute Auto 0.7 K/mm3 (0.1-0.6); Monocytes Percent Auto 10.4 % (2.6-8.5); Neutrophils Absolute Auto 3.5 K/mm3 (1.3-6.7); Neutrophils Percent Auto 52.6 % (45.5-73.1); Platelet Count Result 167 k/mm3 (150-375); Red Blood Count 2.89 M/mm3 (4.2-5.4); Red Cell Distribution Width 15.7 % (11.5-14.5); White Blood Count 6.6 K/mm3 (4.5-10.0)
[2020-10-29 06:06] LABS: Alanine Aminotransferase 46 U/L (4-35); Albumin Level 2.9 g/dL (3.5-5.1); Alkaline Phosphatase 321 U/L (38-126); Aspartate Amino Transferase 63 U/L (14-36); Bilirubin,Total 1.4 mg/dL (0.2-1.3)
[2020-10-29 06:18] LABS: CRP 16.4 mg/dL (<1.0)
[2020-10-29 07:00] LABS: Hepatitis B Surface Antigen Negative (Negative)
[2020-10-29 07:06] LABS: HAV RESULT Negative (Negative); Hepatitis B Core IgM Result Negative (Negative)
[2020-10-29 07:18] LABS: Anion Gap 8 mmol/L (8-16); Blood Urea Nitrogen 6 mg/dL (7-17); Calcium 8.7 mg/dL (8.4-10.2); Carbon Dioxide 27 mmol/L (22-30); Chloride 102 mmol/L (98-107); Estimated CRCL calculation 79 ml/min; Estimated Glomerular Filt Rate > 60; Glucose 93 mg/dL (65-105); Sodium 137 mmol/L (137-145)
[2020-10-29 07:18] LABS: Hepatitis C Virus Antibody Negative (Negative)
--- NOTE | 2020-10-29 09:43 | PC.NURSE ---
Pt to US per wheelchair 10/29/20 0944.
[2020-10-29] MEDS: POTASSIUM CHLORIDE 20 MEQ TABLET 60 MEQ PO (10:14)
--- NOTE | 2020-10-29 10:15 | PC.NURSE ---
pt returned from US per wheelchair.
--- NOTE | 2020-10-29 10:48 | PM.DS ---
DS: Admitting Diagnosis Admitting Diagnosis Admitting Diagnosis: pyelonephritis DS: Discharge Diagnosis Discharge Diagnosis (1) Pyelonephritis: Code(s): N12 - Tubulo-interstitial nephritis, not specified as acute or chronic Status: Acute Assessment and Plan: CT x2 showing pyelonephritis -Urine cx growing pansensitive ecoli. New urine cx negative -original blood cultures NGTD and new blood cultures pending -no urinary symptoms, positive CVA tenderness but improved -last fever 10/28 at 6:00 a.m. Pt afebrile for 24 hours so okay for discharge. -Will transition to cefdinir from ceftriaxone. told her to call if she has any problems with that. She had blurry vision with cephalexin in the past but no issues with ceftriaxone here. -HIV neg (2) Sepsis: Code(s): A41.9 - Sepsis, unspecified organism Status: Acute Assessment and Plan: Resolved. Evident by leukocytosis, tachycardia, and fever -likely due to pyelonephritis as seen on the CT and consistent with her symptoms on exam -blood cultures NGTD -patient had a tubal ligation last month, do not suspect it causing the fever/infection. -elevated D-dimer likely due to infection/sepsis. No sign of PE or DVT on imaging. (3) ERWIN (acute kidney injury): Code(s): N17.9 - Acute kidney failure, unspecified Status: Acute Assessment and Plan: Resolved (4) Tobacco dependence: Code(s): F17.200 - Nicotine dependence, unspecified, uncomplicated Status: Acute Assessment and Plan: Nicotine patch as needed -patient was educated to quit smoking (5) Strep throat: Code(s): J02.0 - Streptococcal pharyngitis Status: Acute Assessment and Plan: Pt receiving ceftriaxone and has no throat pain today (6) Sinus tachycardia: Code(s): R00.0 - Tachycardia, unspecified Status: Acute Assessment and Plan: resolved. likely due to infection -usually runs on the higher end of normal -no CP or signs of HF (7) Hypokalemia: Code(s): E87.6 - Hypokalemia Status: Acute Assessment and Plan: 3.0 today -will give 4 days of 20meq bid. recheck labs in 2 weeks to see if she needs additional tx outpt. She is going to f/u with pcp. (8) Transaminitis: Code(s): R74.01 - Elevation of levels of liver transaminase levels Status: Acute Assessment and Plan: Very mild -hepatitis neg -no signs of liver pathology on CT or u/s -likely due to infection -repeat labs in 2 weeks and f/u with pcp (9) Gallstones: Code(s): K80.20 - Calculus of gallbladder without cholecystitis without obstruction Status: Acute Assessment and Plan: Not causing pain -does not seem to be causing pain -educated pt about s/s of cholecystitis and to come back if she develops any of these. DS: Summary Hospital Course Hospital Course: Patient is a 30-year-old female who presented emergency room for abdominal pain. Patient had a tubal ligation September 09, 2020 and was doing fine up until she came into the ER on October 25, 2020. She also reported fevers, chills and fatigue as well as tachycardia. Vitals in the ER were temperature 98.7?, pulse 135, respiratory rate 16, blood pressure 113/79, pulse ox 100 on room air. Initial white blood cell count 13.9. Potassium 2.9, creatinine 1.1. Bedside test negative, influenza test negative, strep was initially negative but culture became positive. Chest x-ray showed no acute pulmonary disease. CTA of the chest abdomen pelvis showed bilateral pyelonephritis with no PE. Transvaginal ultrasound showed no sonographic correlation with the patient's symptoms. UA suspicious for UTI. Patient was admitted to the hospitalist service and started on ceftriaxone. The patient continued to have fevers for multiple days up to 104. She also started to have slightly elevated liver enzymes. For this reason, a repeat C
--- NOTE | 2020-11-05 13:07 | PC.NURSE ---
Blood cultures are normal x4.
== END 2020-10-29 12:57 | disposition home or self-care (01) | DRG 872 ==
LOC: ANHED 12:01 → ANH2MED 16:51
PROVIDERS: Physician Assistant; Admitting Provider Family Medicine; Emergency Provider General Practice; PCP Internal Medicine; Visit Provider Internal Medicine
DX: A41.9 Sepsis, unspecified organism (principal); N12 Tubulo-interstitial nephritis, not specified as acute or chronic; N17.9 Acute kidney failure, unspecified; F17.210 Nicotine dependence, cigarettes, uncomplicated; J02.0 Streptococcal pharyngitis; E87.6 Hypokalemia; R74.01 Elevation of levels of liver transaminase levels; K80.20 Calculus of gallbladder without cholecystitis without obstruction; D53.9 Nutritional anemia, unspecified; Z88.0 Allergy status to penicillin; Z88.1 Allergy status to other antibiotic agents; Z98.51 Tubal ligation status
CPT/HCPCS: 36415; 71045; 71275; 74177; 76705; 76830; 76856; 80048; 80053; 80074; 80076; 81001; 81003; 81025; 82550; 82607; 82728; 82746; 83540; 83550; 83605; 83690; 83735; 84132; 84439; 84443; 84466; 84480; 85025; 85055; 85380; 85610; 85730; 86140; 86703; 87040; 87070; 87077; 87081; 87086; 87088; 87147; 87186; 87491; 87591; 87804; 87808; 87880; 93970; 96361; 96365; 96366; 96367; 96375; 96376; 99285; A9270; G0378; G0432; J0131; J0696; J1741; J2405; J3475; J3480; J7030; J7120; Q9967

== ENCOUNTER 2022-10-30 00:26 | Emergency (ER) | payer OTHER, SELFPAY ==
[2022-10-30] VITALS (14 sets, daily range): BP systolic 128–161; BP diastolic 92–103; PULSE 67–96; RESP 18–25; TEMP 36.9; O2SAT 98–100
--- NOTE | ~2022-10-30 | XR_ITS ---
EXAMINATION: XR chest 2V DATE: 10/30/2022 01:19 INDICATION: Left chest pain. TECHNIQUE: Frontal and lateral views of the chest were obtained. COMPARISON: Chest single view 10/25/2020 FINDINGS: The chest demonstrates clear lungs without pneumonia, pleural effusion, or pneumothorax. Th e heart size is normal. IMPRESSION: 1. No acute cardiopulmonary disease. Reviewed, dictated and finalized at location A.
--- NOTE | ~2022-10-30 | CT_ITS ---
EXAMINATION: CTA chest abdomen pelvis DATE: 10/30/2022 02:16 INDICATION: Chest pain. Shortness of breath. TECHNIQUE: Computed tomographic angiography (CTA) of the chest was performed with 100 mL Omnipaque 35 0 intravenous contrast. Computed tomography (CT) of the abdomen and pelvis was performed with intrave nous contrast. Automated exposure control and iterative reconstruction technique were employed. The d ose-length product was 484.96 mGy-cm. Maximum intensity projection 3D-reconstructions of the pulmonar y arteries were constructed by the technologist. COMPARISON: CT abdomen and pelvis 10/28/2020, chest CT 10/25/2020 FINDINGS: CHEST CTA: The lungs demonstrate mild dependent atelectasis. There is a pneumatocele in left upper lobe. No pleu ral effusion. The heart size is normal. No pericardial effusion. There is no pulmonary embolus. Thora cic aorta is normal. ABDOMEN AND PELVIS CT: The liver, gallbladder, spleen, pancreas, and adrenal glands are normal. There is cortical thinning o f the kidneys. There is a 7 mm cyst in left kidney. There is a tampon in the vagina. The appendix is normal. There are no dilated loops of bowel. There are no pathologically enlarged lymph nodes. There is physiologic fluid in the pelvis. Abdominal aorta is normal. There is an umbilical hernia containin g fat. There is mild lumbar spondylosis. IMPRESSION: 1. No pulmonary embolus. 2. Umbilical hernia containing fat. Reviewed, dictated and finalized at location A.
--- NOTE | 2022-10-30 00:29 | ECG_ITS ---
Measurements Intervals Terral Rate: 84 P: 63 NV: 147 QRS: 25 QRSD: 86 T: 61 QT: 345 QTc: 409 Interpretive Statements SINUS RHYTHM BASELINE ARTIFACT- I, II, III NORMAL ECG NO PREVIOUS ECG AVAILABLE FOR COMPARISON Electronically Signed On 10-30-2022 8:00:14 CDT by Fredis Kang D.O.
--- NOTE | 2022-10-30 01:10 | PC.NURSE ---
pt is off unit to obtain chest x-ray
[2022-10-30 01:34] LABS: Basophils Percent Auto 0.5 % (0.2-1.2); Eosinophils Absolute Auto 0.2 K/mm3 (0-0.3); Hematocrit 38.2 % (37.0-47.0); Hemoglobin 13.2 g/dL (12.0-15.0); Immature Granulocyte Absolute 0.01 K/mm3 (0.00-0.031); Immature Granulocyte Percent A 0.1 % (0-0.5); Lymphocytes Absolute Auto 2.11 K/mm3 (0.9-3.2); Lymphocytes Percent Auto 26.7 % (18.3-44.2); Mean Corpuscular HGB Conc 34.6 g/dl (32-36); Mean Corpuscular Volume 92.7 fl (80-100); Mean Platelet Volume 10.3 fl (7.4-10.4); Monocytes Absolute Auto 0.5 K/mm3 (0.1-0.6); Monocytes Percent Auto 5.7 % (2.6-8.5); Neutrophils Absolute Auto 5.1 K/mm3 (1.3-6.7); Platelet Count Result 173 k/mm3 (150-375); Red Blood Count 4.12 M/mm3 (4.2-5.4); Red Cell Distribution Width 12.2 % (11.5-14.5); White Blood Count 7.9 K/mm3 (4.5-10.0)
--- NOTE | 2022-10-30 01:36 | ED.CHESTPAIN ---
HPI - Chest Pain General Chief Complaint: Chest Pain Stated Complaint: sharp chest pain started at 6pm Time Seen by Provider: 10/30/22 01:04 History of Present Illness HPI narrative: Patient is a 32-year-old female here for evaluation of sharp chest pain x1 day. Patient states that she was retching and had a small amount of blood in her vomit yesterday after forceful vomit. She was seen at [facility] [place] emergency department and had a reassuring work-up and was discharged home but states that her pain never really got better. Pain became severe today and is radiating to her back and occasionally associated with left arm tingling. She denies any further episodes of hemoptysis or hematemesis. She is still having diarrhea and lower abdominal cramping but no leg swelling, shortness of breath, fevers or chills. Related Data Allergies Allergy/AdvReac Type Severity Reaction Status Date / Time azithromycin Allergy Severe Anaphylaxis Verified 10/30/22 01:09 ciprofloxacin Allergy Mild Difficulty Verified 10/30/22 01:09 Breathing Penicillins Allergy Mild Hives Verified 10/30/22 01:09 cephalexin [From Keflex] Allergy Blurry Verified 10/30/22 01:09 Vision Review of Systems Review of Systems: Gen.: Denies fevers or chills Eyes: Denies eye pain or visual change ENT: Denies congestion Respiratory: Denies shortness of breath or cough CV: Reports chest pain GI: Reports diarrhea. Denies abdominal pain nausea, emesis or diarrhea denies burning, urgency, frequency or hematuria Musculoskeletal: Denies back pain or muscle pain Neuro: Denies numbness, tingling, weakness or focal weakness Skin: Denies rash Except as documented, all other systems reviewed and negative PMFSH Surgical History Surgical History H/O LEEP H/O tubal ligation Social History Social History Years smoked: 15 Smoking status: Current every day smoker Tobacco type: cigarettes Alcohol intake: never Substance use: never Spiritual care concerns: No Exam Narrative: APPEARANCE: Well appearing, no pain in distress, well-nourished. Head: Normocephalic and atraumatic. EYES: PERRLA/EOMI, conjunctivae clear NOSE: No nasal drainage EARS: External ear normal in appearance THROAT: Oropharynx is clear. Mucous membranes are moist. NECK: Supple. No adenopathy, no masses. RESPIRATORY: Airway patent, respirations nonlabored. Clear to auscultation bilaterally, no rales, rhonchi, wheezing. CARDIOVASCULAR: Pulse deficit, 2+ radial pulse on the left and 1+ on the right. regular rate and rhythm without murmurs, rubs, or gallops. ABDOMINAL: Normoactive bowel sounds. Soft, nontender, nondistended. No rebound tenderness or guarding. MUSCULOSKELETAL: Extremities are warm and well-perfused. Moves all extremities well. No edema. NEURO: Normal speech. No focal neurologic deficits. SKIN: Skin is warm and dry. No rashes. PSYCHIATRIC: Normal affect/mood.. Course Vital Signs Vital signs: Vital Signs Temperature 98.4 F 10/30/22 00:40 Pulse Rate 96 10/30/22 00:40 Respiratory Rate 18 10/30/22 00:40 Blood Pressure 151/103 H 10/30/22 00:40 Pulse Oximetry 100 10/30/22 00:40 Temperature 98.4 F 10/30/22 00:40 Pulse Rate 96 10/30/22 00:40 Respiratory Rate 18 10/30/22 00:40 Blood Pressure 151/103 H 10/30/22 00:40 Pulse Oximetry 100 10/30/22 01:05 Oxygen Delivery Room Air 10/30/22 01:05 MDM - Chest Pain MDM Narrative Medical decision making narrative: 32-year-old female here for evaluation of chest pain and abdominal discomfort after she had a episode of retching yesterday. She is nontoxic in appearance and has normal vital signs. No abdominal tenderness on exam. EKG and troponin are nonischemic. Chest x-ray is clear. Obtained a chest abdomen pelvis rule out PE versus Boerhaave's versus other acute concerning pa
[2022-10-30 01:43] LABS: Alanine Aminotransferase 16 U/L (6-35); Albumin Level 3.9 g/dL (3.5-5.1); Alkaline Phosphatase 52 U/L (38-126); Anion Gap 6 mmol/L (8-16); Aspartate Amino Transferase 23 U/L (14-36); Bilirubin,Total 0.4 mg/dL (0.2-1.3); Blood Urea Nitrogen 12 mg/dL (7-17); Calcium 8.5 mg/dL (8.4-10.2); Carbon Dioxide 27 mmol/L (22-30); Chloride 104 mmol/L (98-107); Estimated Glomerular Filt Rate > 60; Glucose 103 mg/dL (65-110); Lipase 125 U/L (23-300); Potassium 3.3 mmol/L (3.4-5.0); Sodium 137 mmol/L (137-145)
[2022-10-30] MEDS: MORPHINE SULFATE (*CRX) 4 MG/ML INJ IV PUSH (01:43)
[2022-10-30 01:44] LABS: INR 0.9; Partial Thromboplastin Time 27.7 SECONDS (22.3-36.8); Prothrombin Time 12.9 Seconds (11.1-14.7)
[2022-10-30 01:55] LABS: Troponin I < 0.012 ng/mL (0.000-0.034)
[2022-10-30 03:59] LABS: Troponin I < 0.012 ng/mL (0.000-0.034)
[2022-10-30] MEDS: FAMOTIDINE 20 MG/2 ML VIAL IV PUSH (05:06)
[2022-10-30] MEDS: MORPHINE SULFATE (*CRX) 2 MG/ML INJ IV PUSH (05:06)
== END 2022-10-30 05:18 | disposition home or self-care (01) ==
PROVIDERS: Emergency Medicine; Emergency Provider Physician Assistant; PCP Internal Medicine
DX: K29.70 Gastritis, unspecified, without bleeding (principal); F17.210 Nicotine dependence, cigarettes, uncomplicated
CPT/HCPCS: 36415; 71046; 71275; 74174; 80053; 83690; 84484; 85025; 85610; 85730; 93005; 96374; 96375; 96376; 99284; J2270; Q9967

== ENCOUNTER 2023-01-02 00:54 | Emergency (ER) | payer OTHER, SELFPAY ==
--- NOTE | ~2023-01-02 | CT_ITS ---
CT of the Abdomen and Pelvis: Indication: Buttock abscess Technique: 2.5 mm axial scans were obtained through the abdomen and pelvis following intravenous adm inistration of 100 cc of Omnipaque 350. Dose reduction technique was used on this scan by utilizing a utomated exposure control and iterative reconstruction technique. The dose-length product (DLP) was 3 45.27 mGy-cm. COMPARISON: 10/30/2022 Findings: Scans through the lung bases are unremarkable. The liver, spleen, pancreas, gallbladder, adrenals and kidneys are within normal limits. No evidence of aortic aneurysm. No lymphadenopathy. No bowel obstruction or bowel wall thickening. There is no evidence to suggest acute appendicitis. Images through the pelvis were performed. Urinary bladder unremarkable. No adnexal mass evident. No a scites. There is inflammatory change in the subcutaneous soft tissues of the left buttock/gluteal reg ion, with questionable 2 cm phlegmon versus early abscess. Impression: Inflammatory changes in the subcutaneous soft tissues of the left buttock/gluteal region, with questi onable 2 cm area of phlegmon or early abscess formation. Reviewed, dictated and finalized at location . Impression: Inflammatory changes in the subcutaneous soft tissues of the left buttock/glute al region, with questionable 2 cm area of phlegmon or early abscess formation.
[2023-01-02 00:55] VITALS: BP 141/99; PULSE 113; RESP 14; TEMP 36.3; O2SAT 100
[2023-01-02] MEDS: MORPHINE SULFATE (*CRX) 4 MG/ML INJ IV PUSH (03:44)
[2023-01-02] MEDS: SODIUM CHLORIDE 0.9% IV 1,000 ML 999 ML IV CONT (03:45)
[2023-01-02] MEDS: ONDANSETRON INJ 4 MG/2 ML VIAL IV PUSH (03:45)
[2023-01-02 03:52] LABS: Basophils Absolute Auto 0.1 K/mm3 (0.0-0.1); Basophils Percent Auto 0.6 % (0.2-1.2); Eosinophils Absolute Auto 0.1 K/mm3 (0-0.3); Eosinophils Percent Auto 1.3 % (0-4.4); Hemoglobin 12.9 g/dL (12.0-15.0); Immature Granulocyte Absolute 0.02 K/mm3 (0.00-0.031); Immature Granulocyte Percent A 0.2 % (0-0.5); Lymphocytes Absolute Auto 1.85 K/mm3 (0.9-3.2); Lymphocytes Percent Auto 18.2 % (18.3-44.2); Mean Corpuscular HGB Conc 33.9 g/dl (32-36); Mean Corpuscular Hemoglobin 32.1 pg (26-34); Mean Corpuscular Volume 94.5 fl (80-100); Mean Platelet Volume 10.5 fl (7.4-10.4); Monocytes Absolute Auto 0.6 K/mm3 (0.1-0.6); Monocytes Percent Auto 5.6 % (2.6-8.5); Neutrophils Absolute Auto 7.5 K/mm3 (1.3-6.7); Neutrophils Percent Auto 74.1 % (45.5-73.1); Platelet Count Result 174 k/mm3 (150-375); Red Blood Count 4.02 M/mm3 (4.2-5.4); White Blood Count 10.1 K/mm3 (4.5-10.0)
[2023-01-02 04:05] LABS: Lactic Acid Reflex 0.8 mmol/L (0.7-2.0)
[2023-01-02 04:07] LABS: Alanine Aminotransferase 12 U/L (6-35); Albumin Level 4.3 g/dL (3.5-5.1); Alkaline Phosphatase 76 U/L (38-126); Anion Gap 10 mmol/L (8-16); Aspartate Amino Transferase 19 U/L (14-36); Bilirubin,Total 0.4 mg/dL (0.2-1.3); Blood Urea Nitrogen 10 mg/dL (7-17); Carbon Dioxide 25 mmol/L (22-30); Chloride 102 mmol/L (98-107); Estimated CRCL calculation 101 ml/min; Estimated Glomerular Filt Rate > 60; Glucose 96 mg/dL (65-110); Potassium 3.2 mmol/L (3.4-5.0); Sodium 137 mmol/L (137-145)
--- NOTE | 2023-01-02 04:42 | ED.GENADULT ---
HPI - General Adult General Chief complaint: Skin/Abscess/Foreign Body Stated complaint: abcess? Time Seen by Provider: 01/02/23 03:09 History of Present Illness HPI narrative: Patient is a 32-year-old female who presents the emergency department with chief complaint of the left gluteal pain patient reports that she noticed that her left buttock area was becoming red tender and feels swollen. The patient states she had a little bit of drainage out of that area patient denies fever denies chills reports no trauma to the affected area patient reports she had no difficulty defecating or urinating Related Data Allergies Allergy/AdvReac Type Severity Reaction Status Date / Time azithromycin Allergy Severe Anaphylaxis Verified 01/02/23 04:35 ciprofloxacin Allergy Mild Difficulty Verified 01/02/23 04:35 Breathing Penicillins Allergy Mild Hives Verified 01/02/23 04:35 cephalexin [From Keflex] Allergy Blurry Verified 01/02/23 04:35 Vision Review of Systems Review of Systems: A 10 system review of systems was completed on the patient and is negative except for what is stated in the HPI. Nursing and ancillary documentation was reviewed. [facility] Surgical History Surgical History H/O LEEP H/O tubal ligation Social History Social History Years smoked: 15 Smoking status: Current every day smoker Tobacco type: cigarettes Alcohol intake: never Substance use: never Spiritual care concerns: No Exam Narrative: GENERAL: Well-appearing, well-nourished, and in no acute distress. HEAD: Normocephalic, atraumatic. EYES: PERRLA and EOMI. ENT: Nares clear, no rhinorrhea or epistaxis. Mucous membranes moist. NECK: Supple. CHEST: Clear to auscultation. No respiratory distress. HEART: Regular rate and rhythm. No murmur heard. Normal peripheral pulses. ABDOMEN: Soft, nontender, nondistended, normal active bowel sounds. EXTREMITIES: Normal range of motion. No edema. SKIN: Warm, dry, no rash. There is redness and swelling in the left gluteal area there is no tenderness rectum area there is a small dime sized area that is slightly discolored there is no subcutaneous emphysema there is no necrotic tissue NEURO: No focal deficits. Alert and oriented x3. PSYCH: Normal mood and affect. Course Vital Signs Vital signs: Vital Signs Temperature 36.3 C L 01/02/23 00:55 Pulse Rate 113 H 01/02/23 00:55 Respiratory Rate 14 01/02/23 00:55 Blood Pressure 141/99 H 01/02/23 00:55 Pulse Oximetry 100 01/02/23 00:55 Oxygen Delivery Room Air 01/02/23 00:55 Temperature 36.3 C L 01/02/23 00:55 Pulse Rate 113 H 01/02/23 00:55 Respiratory Rate 14 01/02/23 00:55 Blood Pressure 141/99 H 01/02/23 00:55 Pulse Oximetry 100 01/02/23 00:55 Oxygen Delivery Room Air 01/02/23 00:55 Procedures Abscess I/D other: Date of Incision: 01/02/23 Time of Incision: 06:32 Side (if applicable): left Sedation/analgesia: none Local Anesthetic: lidocaine 1% Amount of anesthesia used (mL): 10 Technique: incised with #11 blade Amount of fluid expressed (mL): 3 Irrigation: No Packing used?: iodoform I&D Results: Pus Medical Decision Making MDM Narrative Medical decision making narrative: Differential diagnosis includes abscess, cellulitis Laboratory studies were obtained which showed a white blood cell count of 10.1 CT scan showed evidence of cellulitis and phlegmon Area was incised and drained purulent drainage was expressed from the wound and it was packed with iodoform packing. Vital Signs Vital Signs: Vital Signs Temperature 36.3 C L 01/02/23 00:55 Pulse Rate 113 H 01/02/23 00:55 Respiratory Rate 14 01/02/23 00:55 Blood Pressure 141/99 H 01/02/23 00:55 Pulse Oximetry 100 01/02/23 00:55 Ox
[2023-01-02 04:49] LABS: Appearance Urine Clear (Clear); Bacteria Urine None Seen /hpf; Bilirubin Urine Negative (Negative); Blood Urine 2+ (Negative); Color Urine Yellow (Yellow); Glucose Urine UA Negative (Negative); Ketones Urine 1+ mg/dL (Negative); Leukocyte Esterase Ur 1+ LEU/UL (Negative); Nitrate Urine Negative (Negative); Non Pathogenic Casts 0-2; Protein Urine Negative (Negative); RBC Urine 0-2 /hpf (0-2); Specific Grav Ur 1.011 (1.001-1.035); Squamous Epithelial Cell Urine Occasional /hpf (Few); Urobilinogen Urine 0.2 mg/dL (<2.0); pH Urine 5.5 (5.0-9.0)
[2023-01-02 05:00] LABS: Add Urine Microscopic? YES
[2023-01-02] MEDS: HYDROmorphone HCL INJ (*CRX) 1 MG/ML SYR IV PUSH (06:40)
[2023-01-02] MEDS: DOXYCYCLINE HYCLATE 100 MG TABLET PO (06:43)
[2023-01-02 07:00] VITALS: BP 138/98; PULSE 102; RESP 14; O2SAT 98
== END 2023-01-02 07:01 | disposition home or self-care (01) ==
PROVIDERS: Emergency Provider Emergency Medicine; PCP Internal Medicine
DX: L02.31 Cutaneous abscess of buttock (principal); F17.210 Nicotine dependence, cigarettes, uncomplicated
CPT/HCPCS: 10061; 36415; 74177; 80053; 81001; 81025; 83605; 85025; 87077; 87086; 87186; 96361; 96374; 96375; 99284; A9270; J1170; J2270; J2405; J7030; Q9967

== ENCOUNTER 2025-05-12 10:15 | Inpatient (IN) | payer SELFPAY ==
[2025-05-12] VITALS (7 sets, daily range): BP systolic 104–136; BP diastolic 74–88; PULSE 104–121; RESP 16–26; TEMP 36.8–37.2; O2SAT 97–100; BMI 21.5
--- NOTE | ~2025-05-12 | US_ITS ---
US abdomen limited Indication: Diffuse abdominal pain, transaminitis Comparison: None Technique: Kaba-scale and color Doppler images were obtained. Findings: LIVER: Unremarkable, liver contours intact, no lesions. Normal echogenicity. . GALLBLADDER/BILIARY: Unremarkable.No cholelithiais, wall thickening or pericholecystic fluid. No biliary dilatation. CBD 2.1 mm. Brackenridge sign negative. PANCREAS: Unremarkable. Right Kidney: Right kidney was not imaged. Impression: No acute abnormality. Reviewed, dictated and finalized at location P. REPAIRER Impression: No acute abnormality.
--- NOTE | ~2025-05-12 | CT_ITS ---
CT ABDOMEN AND PELVIS WITHOUT CONTRAST Clinical History: upper abd pain, n/v, hematemesis Comparison: CT abdomen pelvis with contrast 01/02/2023 Technique: Unenhanced axial images lung bases to symphysis pubis Coronal, sagittal reformats CT images acquired with automatic exposure control for dose reduction DLP: 244 mGy-cm Findings: Without intravenous contrast, sensitivity for detecting visceral parenchymal abnormalities decreased. Lung bases: Clear. Visualized heart and pericardium: Unremarkable. Liver: Enlarged. Steatosis. Gallbladder: Unremarkable. Spleen: Unremarkable. Pancreas: Unremarkable. Adrenal glands: Unremarkable. Kidneys: Right kidney- No hydronephrosis. No renal stones. Left kidney- No hydronephrosis. A few tiny stones. Distal esophagus/stomach: Unremarkable. Small bowel loops: Normal caliber and wall thickness. Colon: A few diverticula. Normal caliber and wall thickness. Normal RLQ appendix. Nodes: No enlarged nodes. Peritoneum: No ascites. No free intraperitoneal air. Urinary bladder: Unremarkable. Uterus: Unremarkable. Adnexa: No masses. Small pelvic free fluid. Bones: No acute bony abnormality. Soft tissues: Unremarkable. Unopacified abdominal aorta: No aneurysmal dilatation. IMPRESSION: 1. No acute abnormality. 2. Findings as above. Reviewed, dictated and finalized at location R. [employer]
--- NOTE | 2025-05-12 13:15 | ED_ITS ---
HPI - Nausea/Vomiting/Diarrhea General Chief complaint: Nausea/Vomiting/Diarrhea <Varsha Curry PA-C - Last Filed: 05/12/25 13:23> Stated complaint: vomiting, blood <Varsha Curry PA-C - Last Filed: 05/12/25 13:23> Time Seen by Provider: 05/12/25 13:15 <Varsha Curry PA-C - Last Filed: 05/12/25 13:23> Focused HPI: Patient is a 35-year-old female who presents the ED with report of nausea vomiting. Patient reports she began feeling ill on Sunday. Did eat spicy food that night and thought it was related to this. Vomiting became worse on Sunday, had difficulty keeping down food/drink. Woke up this morning and had an episode of hematemesis. Also reported having some BRBPR. Reports pain in her left upper abdomen and throughout her lower back, hot/cold sensation, lightheadedness. Denies fevers. Denies anticoagulation use. Denies hx of PUD, frequent ETOH use, frequent NSAID use. GENERAL: Mildly uncomfortable-appearing, well-nourished, and in no acute distress. HEAD: Normocephalic, atraumatic. CHEST: Clear to auscultation. ?No respiratory distress. HEART: Tachycardic with regular rhythm.? ABD: TTP in epigastric and LUQ abdomen NEURO: ?Alert and oriented x3. Patient screened in triage and initial orders placed.? ?Additional care and disposition to be based upon?diagnostic testing and treatment. <Varsha Curry PA-C - Last Filed: 05/12/25 13:23> Source: patient <Varsha Curry PA-C - Last Filed: 05/12/25 13:23> Mode of arrival: ambulatory <Varsha Curry PA-C - Last Filed: 05/12/25 13:23> Limitations: no limitations <LEXUS Bazan Last Filed: 05/12/25 13:23> History of Present Illness HPI Narrative: see mse <Cesar Chadwick MD - Last Filed: 05/12/25 16:47> Related Data Allergies/Adverse reactions: Allergies Allergy/AdvReac Type Severity Reaction Status Date / Time azithromycin Allergy Severe Anaphylaxis Verified 05/12/25 10:26 ciprofloxacin Allergy Mild Difficulty Verified 05/12/25 10:26 Breathing Penicillins Allergy Mild Hives Verified 05/12/25 10:26 cephalexin (From Keflex) Allergy Blurry Verified 05/12/25 10:26 Vision <Varsha Curry PA-C - Last Filed: 05/12/25 13:23> Review of Systems 2 Review of Systems: All systems reviewed & are unremarkable except as noted in HPI and below <Cesar Chadwick MD - Last Filed: 05/12/25 16:47> [facility] Surgical History Surgical History: Surgical History History of section H/O tubal ligation H/O LEEP <Varsha Curry PA-C - Last Filed: 05/12/25 13:23> Social History Social History: Social History Years smoked: 15 Smoking status: Current every day smoker Tobacco type: cigarettes Alcohol intake: never Substance use: never Spiritual care concerns: No <Varsha Curry PA-C - Last Filed: 05/12/25 13:23> Exam 2 Narrative: EXAMINATION OF ORGAN SYSTEMS/BODY AREAS: Constitutional: Vital signs per nursing GENERAL:No acute distress, non-toxic appearing. HEAD: Normal with no signs of head trauma. EYES: EOMI, conjunctiva normal ENT: Hearing grossly intact LUNGS: Nonlabored breathing. HEART: Regular rate and rhythm ABD: Soft, minimally tender, diffusely. No rebound or guarding. EXT: Normal range of motion SKIN: No rashes or lesions. NEURO: Alert. No gross focal sensory or strength deficits. PSYCH: Normal affect <Cesar Chadwick MD - Last Filed: 05/12/25 16:47> Course Vital Signs Vital signs: Vital Signs Temperature 36.8 C 05/12/25 10:23 Pulse Rate 120 H 05/12/25 10:23 Respiratory Rate 16 05/12/25 10:23 Blood Pressure 136/88 05/12/25 10:23 Pulse Oximetry 100 05/12/25 10:23 Oxygen Delivery Room Air 05/12/25 10:23 Temperature 36.8 C 05/12/25 10:23 Pulse Rate 118 H 05/12/25 13:25 Respiratory Rate 20 05/12/25 13:25 Blood Pressure 104/80 05/12/25 13:25 Pulse Oximetry 100 05/12/25 13:25 Oxygen Delivery Room Air 05/12/25 13:25 <Varsha Curry PA-C - Last Filed: 05/12/25 13:23> Vital Signs Temperature 36.8 C 05/12/25 10:23 Pulse Rate 120 H 05/12/25 10:23 Respiratory Rate 16 05/12/25 10:23 Blood Pressure 136/88 05/12/25 10:23 Pulse Oximetry 100 05/12/25 10:23 Oxygen Delivery Room Air 05/12/25 10:23 Temperature 36.8 C 05/12/25 10:23 Pulse Rate 118 H 05/12/25 13:25 Respiratory Rate 20 05/12/25 13:25 Blood Pressure 104/80 05/12/25 13:25 Pulse Oximetry 100 05/12/25 13:25 Oxygen Delivery Room Air 05/12/25 13:25 <Cesar Chadwick MD - Last Filed: 05/12/25 16:47> MDM MDM Narrative Medical decision making narrative: MSE by VINCENZO in triage <Varsha Curry PA-C - Last Filed: 05/12/25 13:23> Differential Diagnosis Differential Diagnosis: 35-year-old female presents with vomiting diarrhea. She has a slight tenderness on exam, the differential is a perceived gastroenteritis with significant electrolyte or metabolic disturbance or acute renal failure versus possibly perforated viscus or significant colitis or enteritis. Patient was found have a significant ERWIN that I suspect is almost certainly prerenal given her presentation. Her baseline creatinine is 0.6 years almost 2. She is tachycardic and very dry. She will require hospitalization for IV hydration in addition to repeat kidney function testing I spoke with the hospitalist, patient ended the hospital in serious condition <Cesar Chadwick MD - Last Filed: 05/12/25 16:47> Medical Records I have reviewed the following patient records and this information was taken into consideration when formulating the assessment and plan.: previous labs and previous ER visits <Cesar Chadwick MD - Last Filed: 05/12/25 16:47> Lab Data MDM Lab Attestation statement: I personally reviewed the patient's lab results. <Cesar Chadwick MD - Last Filed: 05/12/25 16:47> Result diagrams: 05/12/25 13:30 05/12/25 13:30 <Varsha Curry PA-C - Last Filed: 05/12/25 13:23> Labs: Lab Results 05/12/25 Range/Units 13:30 WBC 10.5 H (4.5-10.0) K/mm3 RBC 4.50 (4.2-5.4) M/mm3 Hgb 14.4 (12.0-15.0) g/dL Hct 42.9 (37.0-47.0) % MCV 95.3 (80-100) fl MCH 32.0 (26-34) pg MCHC 33.6 (32-36) g/dl RDW 12.7 (11.5-14.5) % Plt Count 181 (150-375) k/mm3 MPV 10.8 H (7.4-10.4) fl Immature Gran % (Auto) 0.4 (0-0.5) % Neut % (Auto) 95.9 H (45.5-73.1) % Lymph % (Auto) 1.9 L (18.3-44.2) % Clay % (Auto) 1.6 L (2.6-8.5) % Eos % (Auto) 0.0 (0-4.4) % Baso % (Auto) 0.2 (0.2-1.2) % Lymph # (Auto) 0.20 L (0.9-3.2) K/mm3 Clay # (Auto) 0.2 (0.1-0.6) K/mm3 Eos # (Auto) 0.0 (0-0.3) K/mm3 Baso # (Auto) 0.0 (0.0-0.1) K/mm3 Abs Immat Gran (auto) 0.04 H (0.00-0.031) K/mm3 Absolute Neuts (auto) 10.0 H (1.3-6.7) K/mm3 Absolute Nucleated RBC 0.000 (0.0-0.012) K/mm3 Nucleated RBC % 0.0 (0.0-0.2) % PT 20.9 H (11.1-14.7) Seconds INR 1.9 APTT 30.6 (22.3-36.8) Seconds Sodium 133 L (137-145) mmol/L Potassium 4.0 (3.4-5.0) mmol/L Chloride 98 (98-107) mmol/L Carbon Dioxide 21 L (22-30) mmol/L Anion Gap 14 H (4-12) mmol/L BUN 18 H (7-17) mg/dL Creatinine 1.94 H (0.7-1.0) mg/dL Estim Creat Clear Calc 31 ml/min Estimated GFR 29 L (59 - ) Glucose 80 (65-110) mg/dL Lactic Acid 2.6 H (0.7-2.0) mmol/L Calcium 8.7 (8.4-10.2) mg/dL Total Bilirubin 2.4 H (0.2-1.3) mg/dL AST > 7500 H (14-36) U/L ALT > 3750 H (6-35) U/L Alkaline Phosphatase 134 H (38-126) U/L Total Protein 8.3 H (6.3-8.2) g/dL Albumin 4.6 (3.5-5.1) g/dL Lipase 875 H (23-300) U/L POC Urine HCG, Qual Negative (Negative) <Varsha Curry PA-C - Last Filed: 05/12/25 13:23> Lab Results 05/12/25 Range/Units 13:30 WBC 10.5 H (4.5-10.0) K/mm3 RBC 4.50 (4.2-5.4) M/mm3 Hgb 14.4 (12.0-15.0) g/dL Hct 42.9 (37.0-47.0) % MCV 95.3 (80-100) fl MCH 32.0 (26-34) pg MCHC 33.6 (32-36) g/dl RDW 12.7 (11.5-14.5) % Plt Count 181 (150-375) k/mm3 MPV 10.8 H (7.4-10.4) fl Immature Gran % (Auto) 0.4 (0-0.5) % Neut % (Auto) 95.9 H (45.5-73.1) % Lymph % (Auto) 1.9 L (18.3-44.2) % Clay % (Auto) 1.6 L (2.6-8.5) % Eos % (Auto) 0.0 (0-4.4) % Baso % (Auto) 0.2 (0.2-1.2) % Lymph # (Auto) 0.20 L (0.9-3.2) K/mm3 Clay # (Auto) 0.2 (0.1-0.6) K/mm3 Eos # (Auto) 0.0 (0-0.3) K/mm3 Baso # (Auto) 0.0 (0.0-0.1) K/mm3 Abs Immat Gran (auto) 0.04 H (0.00-0.031) K/mm3 Absolute Neuts (auto) 10.0 H (1.3-6.7) K/mm3 Absolute Nucleated RBC 0.000 (0.0-0.012) K/mm3 Nucleated RBC % 0.0 (0.0-0.2) % PT 20.9 H (11.1-14.7) Seconds INR 1.9 APTT 30.6 (22.3-36.8) Seconds Sodium 133 L (137-145) mmol/L Potassium 4.0 (3.4-5.0) mmol/L Chloride 98 (98-107) mmol/L Carbon Dioxide 21 L (22-30) mmol/L Anion Gap 14 H (4-12) mmol/L BUN 18 H (7-17) mg/dL Creatinine 1.94 H (0.7-1.0) mg/dL Estim Creat Clear Calc 31 ml/min Estimated GFR 29 L (59 - ) Glucose 80 (65-110) mg/dL Lactic Acid 2.6 H (0.7-2.0) mmol/L Calcium 8.7 (8.4-10.2) mg/dL Total Bilirubin 2.4 H (0.2-1.3) mg/dL AST > 7500 H (14-36) U/L ALT > 3750 H (6-35) U/L Alkaline Phosphatase 134 H (38-126) U/L Total Protein 8.3 H (6.3-8.2) g/dL Albumin 4.6 (3.5-5.1) g/dL Lipase 875 H (23-300) U/L POC Urine HCG, Qual Negative (Negative) <Cesar Chadwick MD - Last Filed: 05/12/25 16:47> Imaging Data Attestation: I personally reviewed and interpreted this imaging study as follows: < Cesar Chadwick MD - Last Filed: 05/12/25 16:47> My impression: CT abdomen pelvis is negative acute. No evidence of appendicitis or perforation or free air per <Cesar Chadwick MD - Last Filed: 05/12/25 16:47> Radiologist's impression: ITS Impressions Abdomen/Pelvis CT 05/12/25 14:22 IMPRESSION: 1. No acute abnormality. 2. Findings as above. Abdomen Ultrasound 05/12/25 16:30 Impression: No acute abnormality. <Varsha Curry PA-C - Last Filed: 05/12/25 13:23> ITS Impressions Abdomen/Pelvis CT 05/12/25 14:22 IMPRESSION: 1. No acute abnormality. 2. Findings as above. Abdomen Ultrasound 05/12/25 16:30 Impression: No acute abnormality. <Cesar Chadwick MD - Last Filed: 05/12/25 16:47> Discharge Plan Discharge Clinical Impression: ERWIN (acute kidney injury), Vomiting <Varsha Curry PA-C - Last Filed: 05/12/25 13:23> Patient Disposition: Still a Patient <Varsha Curry PA-C - Last Filed: 05/12/25 13:23> Condition: Stable <Varsha Curry PA-C - Last Filed: 05/12/25 13:23>
--- NOTE | 2025-05-12 13:34 | ED.NAVMDI ---
HPI - Nausea/Vomiting/Diarrhea General Chief complaint: Nausea/Vomiting/Diarrhea Stated complaint: vomiting, blood Time Seen by Provider: 05/12/25 13:15 Source: patient Mode of arrival: ambulatory Limitations: no limitations Related Data Allergies Allergy/AdvReac Type Severity Reaction Status Date / Time azithromycin Allergy Severe Anaphylaxis Verified 05/12/25 10:26 ciprofloxacin Allergy Mild Difficulty Verified 05/12/25 10:26 Breathing Penicillins Allergy Mild Hives Verified 05/12/25 10:26 cephalexin (From Keflex) Allergy Blurry Verified 05/12/25 10:26 Vision [facility] Surgical History Surgical History H/O LEEP H/O tubal ligation Social History Social History Years smoked: 15 Smoking status: Current every day smoker Tobacco type: cigarettes Alcohol intake: never Substance use: never Spiritual care concerns: No Course Vital Signs Vital signs: Vital Signs Temperature 36.8 C 05/12/25 10:23 Pulse Rate 120 H 05/12/25 10:23 Respiratory Rate 16 05/12/25 10:23 Blood Pressure 136/88 05/12/25 10:23 Pulse Oximetry 100 05/12/25 10:23 Oxygen Delivery Room Air 05/12/25 10:23 Temperature 36.8 C 05/12/25 10:23 Pulse Rate 118 H 05/12/25 13:25 Respiratory Rate 20 05/12/25 13:25 Blood Pressure 104/80 05/12/25 13:25 Pulse Oximetry 100 05/12/25 13:25 Oxygen Delivery Room Air 05/12/25 13:25 [facility] Lab Data 05/12/25 13:30 05/12/25 13:30 Labs: Lab Results 05/12/25 Range/Units 13:30 WBC 10.5 H (4.5-10.0) K/mm3 RBC 4.50 (4.2-5.4) M/mm3 Hgb 14.4 (12.0-15.0) g/dL Hct 42.9 (37.0-47.0) % MCV 95.3 (80-100) fl MCH 32.0 (26-34) pg MCHC 33.6 (32-36) g/dl RDW 12.7 (11.5-14.5) % Plt Count 181 (150-375) k/mm3 MPV 10.8 H (7.4-10.4) fl Immature Gran % (Auto) 0.4 (0-0.5) % Neut % (Auto) 95.9 H (45.5-73.1) % Lymph % (Auto) 1.9 L (18.3-44.2) % [place] % (Auto) 1.6 L (2.6-8.5) % Eos % (Auto) 0.0 (0-4.4) % Baso % (Auto) 0.2 (0.2-1.2) % Lymph # (Auto) 0.20 L (0.9-3.2) K/mm3 [place] # (Auto) 0.2 (0.1-0.6) K/mm3 Eos # (Auto) 0.0 (0-0.3) K/mm3 Baso # (Auto) 0.0 (0.0-0.1) K/mm3 Abs Immat Gran (auto) 0.04 H (0.00-0.031) K/mm3 Absolute Neuts (auto) 10.0 H (1.3-6.7) K/mm3 Absolute Nucleated RBC 0.000 (0.0-0.012) K/mm3 Nucleated RBC % 0.0 (0.0-0.2) % PT 20.9 H (11.1-14.7) Seconds INR 1.9 APTT 30.6 (22.3-36.8) Seconds Sodium 133 L (137-145) mmol/L Potassium 4.0 (3.4-5.0) mmol/L Chloride 98 (98-107) mmol/L Carbon Dioxide 21 L (22-30) mmol/L Anion Gap 14 H (4-12) mmol/L BUN 18 H (7-17) mg/dL Creatinine 1.94 H (0.7-1.0) mg/dL Estim Creat Clear Calc 31 ml/min Estimated GFR 29 L (59 - ) Glucose 80 (65-110) mg/dL Lactic Acid 2.6 H (0.7-2.0) mmol/L Calcium 8.7 (8.4-10.2) mg/dL Total Bilirubin 2.4 H (0.2-1.3) mg/dL AST Pending ALT > 3750 H (6-35) U/L Alkaline Phosphatase 134 H (38-126) U/L Total Protein 8.3 H (6.3-8.2) g/dL Albumin 4.6 (3.5-5.1) g/dL Lipase 875 H (23-300) U/L POC Urine HCG, Qual Negative (Negative) Imaging Data Radiologist's impression: ITS Impressions Abdomen/Pelvis CT 05/12/25 14:22 IMPRESSION: 1. No acute abnormality. 2. Findings as above. Discharge Plan Discharge Clinical Impression: ERWIN (acute kidney injury), Vomiting Patient Disposition: Still a Patient
[2025-05-12] MEDS: SODIUM CHLORIDE 0.9% IV 1,000 ML 999 ML IV CONT ×2 (13:36→15:01)
[2025-05-12] MEDS: PANTOPRAZOLE SODIUM IV 40 MG VIAL IV PUSH (13:36)
[2025-05-12] MEDS: ONDANSETRON INJ 4 MG/2 ML VIAL IV PUSH ×3 (13:36→21:18)
[2025-05-12 13:38] LABS: Hematocrit 42.9 % (37.0-47.0); Hemoglobin 14.4 g/dL (12.0-15.0); Immature Granulocyte Percent A 0.4 % (0-0.5); Lymphocytes Absolute Auto 0.20 K/mm3 (0.9-3.2); Mean Corpuscular HGB Conc 33.6 g/dl (32-36); Mean Corpuscular Hemoglobin 32.0 pg (26-34); Mean Corpuscular Volume 95.3 fl (80-100); Nucleated Red Blood Cells Absolute Auto 0.000 K/mm3 (0.0-0.012); Nucleated Red Blood Cells Perc 0.0 % (0.0-0.2); Platelet Count Result 181 k/mm3 (150-375); Red Blood Count 4.50 M/mm3 (4.2-5.4); White Blood Count 10.5 K/mm3 (4.5-10.0)
[2025-05-12 13:41] LABS: BEDSIDEPREGUCG Negative (Negative)
[2025-05-12 13:52] LABS: Albumin Level 4.6 g/dL (3.5-5.1); Alkaline Phosphatase 134 U/L (38-126); Anion Gap 14 mmol/L (4-12); Bilirubin,Total 2.4 mg/dL (0.2-1.3); Blood Urea Nitrogen 18 mg/dL (7-17); Calcium 8.7 mg/dL (8.4-10.2); Carbon Dioxide 21 mmol/L (22-30); Chloride 98 mmol/L (98-107); Estimated CRCL calculation 31 ml/min; Estimated Glomerular Filt Rate 29; Glucose 80 mg/dL (65-110); INR 1.9; Lipase 875 U/L (23-300); Partial Thromboplastin Time 30.6 Seconds (22.3-36.8); Potassium 4.0 mmol/L (3.4-5.0); Prothrombin Time 20.9 Seconds (11.1-14.7); Sodium 133 mmol/L (137-145); Total Protein 8.3 g/dL (6.3-8.2)
[2025-05-12 14:35] LABS: Alanine Aminotransferase > 3750 U/L (6-35)
[2025-05-12] MEDS: DICYCLOMINE HCL 10 MG CAPSULE PO (15:01)
[2025-05-12] MEDS: KETOROLAC 30 MG/ML VIAL (*BKC) IV PUSH (15:01)
[2025-05-12 15:52] LABS: Aspartate Amino Transferase > 7500 U/L (14-36)
--- NOTE | 2025-05-12 15:52 | PM.IMHP2 ---
H&P: HPI History of Present Illness Date/Time: 05/12/25 15:52 Chief Complaint: Abdominal Pain Narrative: 35 y/o F with PMH of tubal ligation, cervical cancer, HPV, and multiple colposcopies presents here with generalized abdominal pain. The patient presents here from home on 05/12. Abdominal pain started on Sunday, mild. Thought it was due to indigestion from wings eaten the day prior. Then on Sunday she began having nausea and vomiting, tried to eat soup but vomited that back up. Then tried Pedialyte on Sunday and was for the most part able to keep that down. Reports there was blood in her emesis this morning. Blood in her stool as well - BRB. BM solid, hard. No history of hemorrhoids that she knows of. Not hard to pass stool. Not on cholesterol medication, weight loss medication, occasional alcohol use (once weekly). No previous history of IV drug use. Pain in her abdomen is described as sharp/squeezing, intermittent. Pain now more so in her epigastric region and dull, some radiation into her shoulder blades (more so on the left). Denies FH of colon cancers or any other cancers. Personal history of cervical cancer. Initial VS at presentation: 98.3? F, HR 120, R 16, 136/88, and 100% on RA. ED workup showed: WBC 10.5, no anemia, sodium 133, creatinine 1.94/BUN 18/GFR 29 (previously 0.6 and GFR >60 in 2022), lactic 2.6, INR 1.9, total bilirubin 2.4, AST pending, ALT greater than 3750, lipase 875. HCG negative. CT of the abdomen/pelvis showed no acute findings. Review of Systems Review of Systems: All systems reviewed & are unremarkable except as noted in HPI and below [facility] Past Medical History Medical History (Updated 05/12/25 @ 18:07 by Viviana Montenegro APRN) History of HPV infection Surgical History Surgical History History of section H/O tubal ligation H/O LEEP Social History Social History Years smoked: 15 Smoking status: Former smoker Tobacco type: cigarettes Alcohol intake: never Substance use: never Substance use type: does not use Lack of Transportation: YES Lack of Food: Never True Current Housing: I Have Housing Concerned About Future Housing: No Difficulty Paying Gas/Electric Bills: No Difficulty Paying for Meds: No Currently Unemployed: No Education: High School Diploma/GED Difficulty w/ Childcare or Family Care: No Spiritual care concerns: No Meds Home Medications and Allergies Home Medications ?Medication ?Instructions ?Recorded ?Confirmed ?Type No Home Medications 05/12/25 05/12/25 History Allergies Allergy/AdvReac Type Severity Reaction Status Date / Time azithromycin Allergy Severe Anaphylaxis Verified 05/12/25 17:41 ciprofloxacin Allergy Mild Difficulty Verified 05/12/25 17:41 Breathing Penicillins Allergy Mild Hives Verified 05/12/25 17:41 cephalexin (From Keflex) Allergy Blurry Verified 05/12/25 17:41 Vision Vital Signs Vital Signs - 24 hr 05/12/25 10:23 05/12/25 13:25 Temperature 98.3 F Pulse Rate 120 H 118 H Respiratory Rate 16 20 Blood Pressure 136/88 104/80 Pulse Oximetry 100 100 Oxygen Delivery Room Air Room Air Exam Const: General: comfortable and no acute distress Other: , female, nontoxic appearance HENMT: Face/Nose/Sinus: Normal nares present Mouth: Yes moist mucous membranes Eyes: General: appearance normal, both eyes and all related structures Sclera: sclerae normal Pupils: Equal, round and reactive pupils present EOM: EOMs intact bilaterally Resp: Effort & Inspection: normal respiratory effort Auscultation: clear to auscultation bilaterally Cardio: Rate: tachycardic Rhythm: regular rhythm Other: S1-S2 present without murmur, rub, ectopy GI: Other: Abdomen soft, nondistended. Tender in the epigastric region. Normoactive bowel sounds in all quadrants. Skin: General skin exam: normal color and no rashes or lesions noted Wounds: no wounds Neuro: Speech: normal speech Motor exam (neuro): 5/5 motor strength present throughout Sensory Exam: normal sensation Extrem: General: normal to inspection Psych: Mental Status: mental status grossly normal Affect: normal affect Other: Good insight and judgment, very pleasant Results Labs Labs: Short CBC 05/12/25 Range/Units 13:30 WBC 10.5 H (4.5-10.0) K/mm3 Hgb 14.4 (12.0-15.0) g/dL Hct 42.9 (37.0-47.0) % Plt Count 181 (150-375) k/mm3 BMP 05/12/25 13:30 Sodium 133 L Potassium 4.0 Chloride 98 Carbon Dioxide 21 L BUN 18 H Creatinine 1.94 H Glucose 80 Calcium 8.7 Liver Function 05/12/25 Range/Units 13:30 Total Bilirubin 2.4 H (0.2-1.3) mg/dL ALT > 3750 H (6-35) U/L Alkaline Phosphatase 134 H (38-126) U/L Albumin 4.6 (3.5-5.1) g/dL Quality VTE Prophylaxis VTE prophylaxis: mechanical ordered Assessment and Plan Assessment and plan (1) Transaminitis: Code(s): R74.01 - Elevation of levels of liver transaminase levels Status: Acute Assessment and Plan: Upon admission patient's total bilirubin 2.4, AST greater than 7500, ALT greater than 3750, alk-phos 135. Denies heavy alcohol use, reports light use once weekly. - ultrasound of the right upper quadrant obtained, normal - GI consulted - trend LFTs - check hepatitis panel (2) Pancreatitis: Qualifiers: Chronicity: acute Pancreatitis type: unspecified pancreatitis type Acute pancreatitis complication: no infection or necrosis Qualified Code(s): K85.90 - Acute pancreatitis without necrosis or infection, unspecified Code(s): K85.90 - Acute pancreatitis without necrosis or infection, unspecified Status: Acute Assessment and Plan: CT of the abdomen/pelvis showed no acute findings, liver enlarged with steatosis and pancreas unremarkable. Gallbladder unremarkable. Ultrasound of the right upper quadrant unremarkable. No previous history of pancreatitis. Alcohol use once weekly, light. No previous use of statin or weight loss medications. No no knowledge of any lipid panel abnormalities. - acute - IVF: 2L bolus -> 125 mL/hr - trend lipase (moderate elevation) and LFTS (severely elevated) - lipid panel added - pain control with Tylenol, [place], morphine. Antiemetic p.r.n.. - GI consulted, awaiting recs - clear liquid diet this evening, if pain and lab work improved consider advancing tomorrow. (3) GI bleed: Qualifiers: GI bleed type/associated pathology: unspecified gastrointestinal hemorrhage type Qualified Code(s): K92.2 - Gastrointestinal hemorrhage, unspecified Code(s): K92.2 - Gastrointestinal hemorrhage, unspecified Status: Acute Assessment and Plan: Hemoglobin stable at 14.4. Reporting bright red blood per rectum with a somewhat hard stool, however was easy to pass. No previously known history of hemorrhoids. No family history of colon cancer. Also reporting bright red blood with emesis, scant. Slightly elevated INR at 1.9. Not on anticoagulation. No abnormalities on CT of the abdomen/pelvis. - GI consulted, awaiting recs - trend H&H - started on pantoprazole - check stool occult - no previous colonoscopy or EGD - monitor hemodynamic stability and telemetry (4) ERWIN (acute kidney injury): Code(s): N17.9 - Acute kidney failure, unspecified Status: Acute Assessment and Plan: ERWIN likely related to acute dehydration secondary to nausea/vomiting related to pancreatitis. Creatinine 1.94, BUN 18, GFR 29 upon admission. No previous history of renal dysfunction. Reviewed CT of the abdomen/pelvis, no hydronephrosis does have a few tiny kidney stones in the left kidney. - CK urine sodium, protein/creatinine, urea, and UA - monitor I&Os - will trial IV fluids over the next 24 hours, if no improvement or abnormalities noted on current workup consider Nephrology consultation (5) SIRS (systemic inflammatory response syndrome): Code(s): R65.10 - Systemic inflammatory response syndrome (SIRS) of non-infectious origin without acute organ dysfunction Status: Acute Assessment and Plan: HR elevated only in the 120s. Lactic initially 2.6, repeat post fluids 2.0. CT of the abdomen/pelvis unremarkable. No respiratory symptoms. Reporting nausea and vomiting which is likely related to patient's acute pancreatitis. - check blood cultures - IV fluids - monitor WBC - check UA Plan Diet: Clear liquid GI Prophylaxis: PPI IV DVT Prophylaxis: SCDs IV fluids: 2L -> 125 mL/hr Lines/Tubes: pIV Code Status: full code Prior Studies I have reviewed the following patient records and this information was taken into consideration when formulating the assessment and plan.: previous labs, previous ER visits, previous hospitalizations and previous clinic visits Time Spent with Patient Time with patient: less than 45 minutes Hospitalist MIPS Advance Care Plan I have confirmed that the patient's Advanced Care Plan is present, code status is documented, or surrogate decision maker is listed in patient medical record.: Yes Medication Reconciliation I have utilized all available resources to obtain, update and review the patients current medications (includes all prescriptions, OTC, herbals, cannabis, and nutritional supplements).: Yes
--- NOTE | 2025-05-12 16:55 | WPCEDHO ---
ED Hand Off Checklist All vitals saved:yes IV Site documented:yes All med administrations documented:yes Triage Note Triage Note amb to ED with c/o abd pain since 05/12/25 13:25 Sunday, noted blood in emesis this AM - bright red. abdominal pain is in epigastric region and LUQ. pt also reports pain in between shoulder blades on the right side. pt denies any diarrhea and has had 2 BMs since sunday Allergies azithromycin Allergy (Severe, Verified 05/12/25 10:26) Anaphylaxis ciprofloxacin Allergy (Mild, Verified 05/12/25 10:26) Difficulty Breathing Penicillins Allergy (Mild, Verified 05/12/25 10:26) Hives cephalexin (From Keflex) Allergy (Verified 05/12/25 10:) Blurry Vision Administered/Completed Medications Discontinued Medications Dicyclomine HCl (Dicyclomine Hcl 10 Mg Capsule) 10 mg PO ONCE STA Stop: 05/12/25 14:16 Last Admin: 05/12/25 15:01 Dose: 10 mg Documented By: MARISSA Sodium Chloride (Normal Saline Iv) 1,000 mls @ 999 mls/hr IV CONT .Q1H1M STA Stop: 05/12/25 14:18 Last Infusion: 05/12/25 14:37 Dose: Infused Documented By: Admin: 05/12/25 13:36 Dose: 999 mls/hr Documented By: MARISSA Sodium Chloride (Normal Saline Iv) 1,000 mls @ 999 mls/hr IV CONT .Q1H1M STA Stop: 05/12/25 15:14 Last Infusion: 05/12/25 16:00 Dose: Infused Documented By: Admin: 05/12/25 15:01 Dose: 999 mls/hr Documented By: MARISSA Ketorolac Tromethamine (Ketorolac 30 Mg/Ml Vial (*Bkc)) 30 mg IV PUSH ONCE STA Stop: 05/12/25 14:15 Last Admin: 05/12/25 15:01 Dose: 30 mg Documented By: MARISSA Ondansetron HCl (Ondansetron Inj 4 Mg/2 Ml Vial) 4 mg IV PUSH ONCE STA Stop: 05/12/25 13:18 Last Admin: 05/12/25 13:36 Dose: 4 mg Documented By: MARISSA Ondansetron HCl (Ondansetron Inj 4 Mg/2 Ml Vial) 4 mg IV PUSH ONCE STA Stop: 05/12/25 14:15 Last Admin: 05/12/25 15:01 Dose: 4 mg Documented By: MARISSA Pantoprazole Sodium (Pantoprazole Sodium Iv 40 Mg Vial) 40 mg IV PUSH ONCE STA Stop: 05/12/25 13:18 Last Admin: 05/12/25 13:36 Dose: 40 mg Documented By: MARISSA Interventions/Assessments IV / Saline Lock, Insert Start: 05/12/25 10:16 Freq: Status: Active Protocol: Document 05/12/25 13:36 MARISSA (Rec: 05/12/25 13:37 MARISSA [id number]) IV Assessment Peripheral Access Right Antecubital IV Catheter Access Initiated IV Insertion Date 05/12/25 IV Insertion Time 13:30 Catheter Gauge 18 IV Insertion 1 Attempts Ultrasound Used for No Placement IV Site Assessment WNL IV Care and WNL Maintenance PA: Gastrointestinal Assessment Start: 05/12/25 10:16 Freq: Status: Active Protocol: Document 05/12/25 13:25 MARISSA (Rec: 05/12/25 13:28 MARISSA [id number]) GI Assessment Gastrointestinal Hematemesis,Nausea Symptoms Description Flat,Soft Pattern Normal Flatus Present Stool Brown Characterisitics Stool Size Small Nausea/Vomiting Assessment Nausea Frequency Intermittent Emesis Frequency Intermittent Emesis Description Brown Last Vital Signs Temperature 98.3 F 05/12/25 10:23 Pulse Rate 119 H 05/12/25 16:45 Respiratory Rate 26 H 05/12/25 16:45 Pulse Oximetry 99 05/12/25 16:45 Blood Pressure 127/74 05/12/25 16:45 Blood Pressure Mean 91 05/12/25 16:45 Blood Pressure Position Sitting 05/12/25 13:25 Oxygen Delivery Room Air 05/12/25 13:25 Weight 59.8 kg 05/12/25 13:25 Last Result - Abnormals Only WBC 10.5 K/mm3 (4.5-10.0) H 05/12/25 13:30 MPV 10.8 fl (7.4-10.4) H 05/12/25 13:30 Neut % (Auto) 95.9 % (45.5-73.1) H 05/12/25 13:30 Lymph % (Auto) 1.9 % (18.3-44.2) L 05/12/25 13:30 Allen % (Auto) 1.6 % (2.6-8.5) L 05/12/25 13:30 Lymph # (Auto) 0.20 K/mm3 (0.9-3.2) L 05/12/25 13:30 Abs Immat Gran (auto) 0.04 K/mm3 (0.00-0.031) H 05/12/25 13:30 Absolute Neuts (auto) 10.0 K/mm3 (1.3-6.7) H 05/12/25 13:30 PT 20.9 Seconds (11.1-14.7) H 05/12/25 13:30 Sodium 133 mmol/L (137-145) L 05/12/25 13:30 Carbon Dioxide 21 mmol/L (22-30) L 05/12/25 13:30 Anion Gap 14 mmol/L (4-12) H 05/12/25 13:30 BUN 18 mg/dL (7-17) H 05/12/25 13:30 Creatinine 1.94 mg/dL (0.7-1.0) H 05/12/25 13:30 Estimated GFR 29 (59-) L 05/12/25 13:30 Lactic Acid 2.6 mmol/L (0.7-2.0) H 05/12/25 13:30 Total Bilirubin 2.4 mg/dL (0.2-1.3) H 05/12/25 13:30 AST > 7500 U/L (14-36) H 05/12/25 13:30 ALT > 3750 U/L (6-35) H 05/12/25 13:30 Alkaline Phosphatase 134 U/L (38-126) H 05/12/25 13:30 Total Protein 8.3 g/dL (6.3-8.2) H 05/12/25 13:30 Lipase 875 U/L (23-300) H 05/12/25 13:30 Most Recent Suicide Severity Rating Suicide Severity Rating NO RISK INDICATED 05/12/25 13:25
--- NOTE | 2025-05-12 17:20 | PC.NURSE ---
This patient, Judy Davis, was admitted to 3 Med Surg Room 317-02 at 1720. Patient/family oriented to hospital policies and general routines including ID bracelet, bed and alarms, visiting hours, pain management, procedures, bathroom and other care routines, personal items, smoking policy, room service/diet, and visiting hours. Information on how to activate the Rapid Response Team has been discussed. Patient/Family are encouraged to report perceived risks to care and to ask questions if they do not understand what they are told or what they should do.
[2025-05-12] MEDS: HYDROcodone/acetaminophen (*CRX) 5-325 MG TABLET 1 TAB PO ×2 (17:36→21:17)
[2025-05-12] MEDS: LACTATED RINGERS 1,000 ML 125 ML IV CONT (18:12)
[2025-05-12 20:17] LABS: Creatine Kinase 134 U/L (30-135)
[2025-05-12 20:54] LABS: Procalcitonin 48.4 ng/mL
[2025-05-12 21:13] LABS: Hepatitis B Surface Antigen Negative (Negative)
[2025-05-12 21:18] LABS: HAV RESULT Negative (Negative); Hepatitis B Core IgM Result Negative (Negative)
[2025-05-12] MEDS: diphenhydrAMINE HCl CAP 25 MG CAPSULE 50 MG PO (23:28)
[2025-05-13 01:56] LABS: Total Protein Urine Random 129 mg/dL; Urea Random Urine 89 MG/DL
[2025-05-13 02:07] LABS: Ur Ttl Prot Creatinine Ratio 1.49 mg/mg (0-0.20)
[2025-05-13 02:24] LABS: Add Urine Microscopic? YES; Appearance Urine Turbid (Clear); Glucose Urine UA Trace mg/dL (Negative); Leukocyte Esterase Ur Trace LEU/UL (Negative); Need Manual Microscopic Reviewed; Nitrate Urine Negative (Negative); Specific Grav Ur 1.012 (1.001-1.035)
[2025-05-13 06:00] VITALS: BP 144/96; PULSE 102; RESP 16; TEMP 37.2; O2SAT 96
[2025-05-13] MEDS: LACTATED RINGERS 1,000 ML 125 ML IV CONT ×2 (06:15→14:15)
--- NOTE | 2025-05-13 07:11 | P.PNIM_ITS ---
Assessment and Plan Assessment and Plan (1) Pancreatitis: Qualifiers: Acute pancreatitis complication: no infection or necrosis Chronicity: acute Pancreatitis type: unspecified pancreatitis type Qualified Code(s): K85.90 - Acute pancreatitis without necrosis or infection, unspecified Code(s): K85.90 - Acute pancreatitis without necrosis or infection, unspecified Status: Acute Assessment and Plan: * CT of the abdomen/pelvis showed no acute findings, liver enlarged with steatosis and pancreas unremarkable. Gallbladder unremarkable. * RUQ US unremarkable * Alcohol use once weekly, light. No previous use of statin or weight loss medications. * No previous history of pancreatitis. * IVF: 2L bolus -> 125 mL/hr * lipid panel added * pain control with Tylenol, Wallace, morphine. Antiemetic p.r.n.. * clear liquid diet this evening, if pain and lab work improved consider advancing tomorrow * trend lipase (moderate elevation) and LFTS (severely elevated) * 05/13: Lipase 875 -> 582, AST >7500, ALT >3750-> 3130, total bilirubin 1.6 * GI consulted, awaiting recs (2) Transaminitis: Code(s): R74.01 - Elevation of levels of liver transaminase levels Status: Acute Assessment and Plan: Upon admission patient's total bilirubin 2.4, AST greater than 7500, ALT greater than 3750, alk-phos 135. Denies heavy alcohol use, reports light use once weekly. * RUQ US unremarkable * trend LFTs * 05/13: Lipase 875 -> 582, AST >7500, ALT >3750-> 3130, total bilirubin 1.6 * hepatitis panel negative * GI consulted (3) GI bleed: Qualifiers: GI bleed type/associated pathology: unspecified gastrointestinal hemorrh age type Qualified Code(s): K92.2 - Gastrointestinal hemorrhage, unspecified Code(s): K92.2 - Gastrointestinal hemorrhage, unspecified Status: Acute Assessment and Plan: Hemoglobin stable at 14.4. Also reporting bright red blood with emesis, scant. Slightly elevated INR at 1.9. Not on anticoagulation. No abnormalities on CT of the abdomen/pelvis. * Reporting bright red blood per rectum with a somewhat hard stool, however easy to pass. 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 Lactic initially 2.6, repeat post fluids 2.0. * CT of the abdomen/pelvis unremarkable. * No respiratory symptoms. * Reporting nausea and vomiting which is likely related to patient's acute pancreatitis * Check blood cultures * IV fluids * Monitor WBC * Check UA Plan Diet: Clear liquid GI Prophylaxis: PPI IV DVT Prophylaxis: SCDs IV fluids: 2L -> 100 mL/hr Lines/Tubes: pIV Code Status: full code Subjective Date/time seen: 05/13/25 07:11 Interval history: 35 y/o F with PMH of tubal ligation, cervical cancer, HPV, and multiple co lposcopies presents here with generalized abdominal pain. 05/13/2025 Patient sitting comfortably in bed at time of exam. Denies any chest pain, shortness of breath, n/v or abd pain at rest. On exam she does have some epigastric abdominal discomfort, no rebound tenderness. Remains afebrile w/o leukocytosis, however kidney function much worse ( Cr 1.94 -> 3.41). LFTs still markedly elevated, AST >7500, ALT 3130, total bili 1.6. GI consult still pending at this time. Review of Systems Review of Systems: All systems reviewed & are unremarkable except as noted in HPI and below Exam Const: General: comfortable and no acute distress Other: , female, nontoxic appearance HENMT: Face/Nose/Sinus: Normal nares present Mouth: Yes moist mucous membranes Eyes: General: appearance normal, both eyes and all related structures Sclera: sclerae normal Pupils: Equal, round and reactive pupils present EOM: EOMs intact bilaterally Resp: Effort & Inspection: normal respiratory effort Auscultation: clear to auscultation bilaterally Cardio: Rate: tachycardic Rhythm: regular rhythm Other: S1-S2 present without murmur, rub, ectopy GI: Other: Abdomen soft, nondistended. Tender in the epigastric region. Normoactive bowel sounds in all quadrants. Skin: General skin exam: normal color and no rashes or lesions noted Wounds: no wounds Neuro: Cranial nerves: Yes Equal, round and reactive pupils present Speech: normal speech Motor exam (neuro): 5/5 motor strength present throughout Sensory Exam: normal sensation Extrem: General: normal to inspection Psych: Mental Status: mental status grossly normal Affect: normal affect Other: Good insight and judgment, very pleasant Objective Data Vital Signs Vital Signs: Vital Signs - 24 hr 05/12/25 10:23 05/12/25 13:25 05/12/25 13:28 Temperature 98.3 F Pulse Rate 120 H 118 H 108 H Respiratory Rate 16 20 23 H Blood Pressure 136/88 104/80 104/80 Pulse Oximetry 100 100 Oxygen Delivery Room Air Room Air 05/12/25 13:30 05/12/25 16:45 05/12/25 17:00 Temperature Pulse Rate 111 H 119 H 121 H Respiratory Rate 21 H 26 H 21 H Blood Pressure 121/79 127/74 133/74 Pulse Oximetry 98 99 98 Oxygen Delivery 05/12/25 17:20 05/12/25 20:00 05/12/25 22:00 Temperature 98.9 F Pulse Rate 104 H Respiratory Rate 16 Blood Pressure 127/88 Pulse Oximetry 97 Oxygen Delivery Room Air Room Air 05/13/25 06:00 Temperature 98.9 F Pulse Rate 102 H Respiratory Rate 16 Blood Pressure 144/96 H Pulse Oximetry 96 Oxygen Delivery Intake/Output Intake/Output: Intake & Output 05/10/25 05/11/25 05/12/25 05/13/25 23:59 23:59 23:59 23:59 Intake Total 1999 999 Balance 1999 999 Meds/Results Medications: Active Medications Generic Name Dose Route Start Last Admin Trade Name Freq PRN Reason Stop Dose Admin Acetaminophen 650 mg 05/12/25 15:23 Acetaminophen 325 Mg Tablet PO Q6H PRN Pain Rated 1-3 Hydrocodone Bitart/Acetaminophen 1 tab 05/12/25 15:23 05/12/25 21:17 Hydrocodone/Acetaminophen (*Crx) 5-325 Mg Tablet PO 1 tab Q4H PRN Administration Moderate Pain (4-6) Diphenhydramine HCl 50 mg 05/12/25 23:17 05/12/25 23:28 Diphenhydramine Hcl Cap 25 Mg Capsule PO 50 mg Q6H PRN Administration Itching Lactated Ringer's 1,000 mls @ 125 mls/hr 05/12/25 15:20 05/13/25 06:15 Lr - Lactated Ringers Iv IV CONT 125 mls/hr .Q8H AMEE Administration Morphine Sulfate 2 mg 05/12/25 15:23 Morphine Sulfate (*Crx) 4 Mg/Ml Inj IV PUSH Q4H PRN Pain Rated 7-10 Ondansetron HCl 4 mg 05/12/25 15:22 05/12/25 21:18 Ondansetron Inj 4 Mg/2 Ml Vial IV PUSH 4 mg Q4H PRN Administration Nausea And Vomiting Pantoprazole Sodium 40 mg 05/13/25 09:00 Pantoprazole Sodium Iv 40 Mg Vial IV PUSH QAM [facility] Radiology Results: ITS Impressions Abdomen/Pelvis CT 05/12/25 14:22 IMPRESSION: 1. No acute abnormality. 2. Findings as above. Abdomen Ultrasound 05/12/25 16:30 Impression: No acute abnormality. Labs Labs: Laboratory Results - last 24 hr 05/12/25 05/12/25 05/12/25 13:30 17:31 19:50 WBC 10.5 H RBC 4.50 Hgb 14.4 Hct 42.9 MCV 95.3 MCH 32.0 MCHC 33.6 RDW 12.7 Plt Count 181 MPV 10.8 H Immature Gran % (Auto) 0.4 Neut % (Auto) 95.9 H Lymph % (Auto) 1.9 L [place] % (Auto) 1.6 L Eos % (Auto) 0.0 Baso % (Auto) 0.2 Lymph # (Auto) 0.20 L [place] # (Auto) 0.2 Eos # (Auto) 0.0 Baso # (Auto) 0.0 Abs Immat Gran (auto) 0.04 H Absolute Neuts (auto) 10.0 H Absolute Nucleated RBC 0.000 Nucleated RBC % 0.0 PT 20.9 H INR 1.9 APTT 30.6 Sodium 133 L Potassium 4.0 Chloride 98 Carbon Dioxide 21 L Anion Gap 14 H BUN 18 H Creatinine 1.94 H Estim Creat Clear Calc 31 Estimated GFR 29 L Glucose 80 Lactic Acid 2.6 H 2.0 Calcium 8.7 Total Bilirubin 2.4 H AST > 7500 H ALT > 3750 H Alkaline Phosphatase 134 H Total Creatine Kinase 134 Total Protein 8.3 H Albumin 4.6 Lipase 875 H Procalcitonin 48.4 Urine Color Urine Appearance Urine pH Ur Specific [place] Urine Protein Urine Glucose (UA) Urine Ketones Ur Blood (Man) Urine Nitrate Urine Bilirubin Urine Urobilinogen Add Ur Microanalysis Leukocyte Esterase Rfl Urine RBC Urine WBC Ur Squamous Epith Cells Urine Bacteria Urine Casts U Random Total Protein Ur Random Urea Urine Creatinine Protein/Creat Ratio 2 POC Urine HCG, Qual Negative Hepatitis A IgM Ab Negative Hep Bs Antigen Negative Hep B Core IgM Ab Negative Hepatitis C Ab Screen Negative 05/13/25 01:19 WBC RBC Hgb Hct MCV MCH MCHC RDW Plt Count MPV Immature Gran % (Auto) Neut % (Auto) Lymph % (Auto) [place] % (Auto) Eos % (Auto) Baso % (Auto) Lymph # (Auto) [place] # (Auto) Eos # (Auto) Baso # (Auto) Abs Immat Gran (auto) Absolute Neuts (auto) Absolute Nucleated RBC Nucleated RBC % PT INR APTT Sodium Potassium Chloride Carbon Dioxide Anion Gap BUN Creatinine Estim Creat Clear Calc Estimated GFR Glucose Lactic Acid Calcium Total Bilirubin AST ALT Alkaline Phosphatase Total Creatine Kinase Total Protein Albumin Lipase Procalcitonin Urine Color Dark yellow Urine Appearance Turbid H Urine pH 5.0 Ur Specific [place] 1.012 Urine Protein 2+ H Urine Glucose (UA) Trace H Urine Ketones Trace H Ur Blood (Man) 1+ H Urine Nitrate Negative Urine Bilirubin 1+ H Urine Urobilinogen 1.0 Add Ur Microanalysis Reviewed Leukocyte Esterase Rfl Trace H Urine RBC 0-2 Urine WBC 11-20 H Ur Squamous Epith Cells Many H Urine Bacteria 2+ H Urine Casts 3-5 U Random Total Protein 129 Ur Random Urea 89 Urine Creatinine 86.4 Protein/Creat Ratio 2 1.49 H POC Urine HCG, Qual Hepatitis A IgM Ab Hep Bs Antigen Hep B Core IgM Ab Hepatitis C Ab Screen Quality VTE Prophylaxis VTE prophylaxis: mechanical ordered
[2025-05-13 07:52] LABS: Hematocrit 31.9 % (37.0-47.0); Hemoglobin 11.0 g/dL (12.0-15.0); Immature Granulocyte Percent A 0.9 % (0-0.5); Immature Platelet Fraction Pct 4.6 % (0.9-11.2); Lymphocytes Absolute Auto 0.46 K/mm3 (0.9-3.2); Mean Corpuscular HGB Conc 34.5 g/dl (32-36); Mean Corpuscular Hemoglobin 33.0 pg (26-34); Mean Corpuscular Volume 95.8 fl (80-100); Nucleated Red Blood Cells Absolute Auto 0.000 K/mm3 (0.0-0.012); Nucleated Red Blood Cells Perc 0.0 % (0.0-0.2); Platelet Count Result 98 k/mm3 (150-375); Red Blood Count 3.33 M/mm3 (4.2-5.4); White Blood Count 4.7 K/mm3 (4.5-10.0)
[2025-05-13 08:36] LABS: Albumin Level 2.9 g/dL (3.5-5.1); Alkaline Phosphatase 111 U/L (38-126); Anion Gap 5 mmol/L (4-12); Bilirubin,Total 1.6 mg/dL (0.2-1.3); Blood Urea Nitrogen 27 mg/dL (7-17); Calcium 7.4 mg/dL (8.4-10.2); Carbon Dioxide 20 mmol/L (22-30); Chloride 102 mmol/L (98-107); Estimated CRCL calculation 18 ml/min; Estimated Glomerular Filt Rate 15; Glucose 86 mg/dL (65-110); Lipase 582 U/L (23-300); Potassium 3.4 mmol/L (3.4-5.0); Sodium 127 mmol/L (137-145); Total Protein 5.6 g/dL (6.3-8.2)
[2025-05-13 09:24] LABS: Alanine Aminotransferase 3130 U/L (6-35); Aspartate Amino Transferase > 7500 U/L (14-36)
[2025-05-13] MEDS: PANTOPRAZOLE SODIUM IV 40 MG VIAL IV PUSH (09:41)
[2025-05-13 13:35] LABS: Cholesterol 96 mg/dL (0-200); HDL Direct 28 mg/dL; Triglycerides 289 mg/dL (<150)
[2025-05-13 14:00] VITALS: BP 144/92; PULSE 92; RESP 18; TEMP 36.2; O2SAT 97
[2025-05-13 16:02] LABS: Acetaminophen < 10 ug/mL (10-30)
[2025-05-13] MEDS: ONDANSETRON INJ 4 MG/2 ML VIAL IV PUSH (17:05)
--- NOTE | 2025-05-13 17:28 | WPDGICN ---
Assessment and Plan Assessment and plan (1) Acute liver failure due to drug: Code(s): K71.10 - Toxic liver disease with hepatic necrosis, without coma Status: Acute Assessment and Plan: unfortunately patient did not know that excessive dose of tylenol can cause liver damage this is consistent with tylenol overdose I ordered STAT mucomyst IV per protocol and given severity of liver disease we reached out to hepatology service at [facility]- transfer is requested and has been accepted in case she does not recover and may need liver transplant she already has renal failure, hyponatremia, coagulopathy, low platelets (2) Acetaminophen overdose: Code(s): T39.1X1A - Poisoning by 4-Aminophenol derivatives, accidental (unintentional), initial encounter Status: Acute (3) ERWIN (acute kidney injury): Code(s): N17.9 - Acute kidney failure, unspecified Status: Acute (4) Elevated liver enzymes: Code(s): R74.8 - Abnormal levels of other serum enzymes Status: Acute (5) Coagulopathy: Code(s): D68.9 - Coagulation defect, unspecified Status: Acute (6) Thrombocytopenia: Code(s): D69.6 - Thrombocytopenia, unspecified Status: Acute (7) Vomiting: Code(s): R11.10 - Vomiting, unspecified Status: Acute GI Consult Note Consult date/time: 05/13/25 17:28 Reason for consult: liver failure HPI: Judy Davis is a 35 year old female healthy otherwise who last Sunday had migraines then decided to take tylenol 500 mg 3 tablets every 8 hours for 4 days then next day started feeling sick with abdominal pain and came to ER. Blood work with transaminases over 7000, bili 2.4, na 127, creat 3.3 (yesterday 1.9), inr 1.9. Liver ultrasound normal. I was called to see patient today and she initially did not rely information to admitting provider about tylenol use which was unintentional until we asked specifically about it- she normally does not take any medications. Alcohol only social, denies any chronic medical condition. Review of Systems Constitutional: Constitutional: Denies chills Eyes: Eyes: Denies blurry vision ENT: Reports Normal hearing present Cardiovascular: Cardiovascular: Denies chest pain Respiratory: Respiratory: Denies cough Gastrointestinal: Gastrointestinal: Reports abdominal pain Genitourinary: Genitourinary: Denies dysuria Musculoskeletal: Musculoskeletal: Denies neck pain Integumentary/Breasts: Skin/Breast: Denies rash Neurologic: Denies Abnormal speech present Psychiatric: Psychiatric: Denies confusion [facility] Past Medical History Medical History (Updated 05/13/25 @ 17:34 by Charli Garcia MD) Thrombocytopenia Coagulopathy Elevated liver enzymes Acetaminophen overdose Acute liver failure due to drug ERWIN (acute kidney injury) History of HPV infection Surgical History Surgical History (Updated 05/12/25 @ 17:56 by Viviana Montenegro APRN) History of section H/O tubal ligation H/O LEEP Social History Social History Years smoked: 15 Smoking status: Former smoker Tobacco type: cigarettes Alcohol intake: never Substance use: never Substance use type: does not use Lack of Transportation: YES Lack of Food: Never True Current Housing: I Have Housing Concerned About Future Housing: No Difficulty Paying Gas/Electric Bills: No Difficulty Paying for Meds: No Currently Unemployed: No Education: High School Diploma/GED Difficulty w/ Childcare or Family Care: No Spiritual care concerns: No Meds Home Medications and Allergies Home Medications ?Medication ?Instructions ?Recorded ?Confirmed ?Type No Home Medications 05/12/25 05/12/25 History Allergies Allergy/AdvReac Type Severity Reaction Status Date / Time azithromycin Allergy Severe Anaphylaxis Verified 05/12/25 17:41 ciprofloxacin Allergy Mild Difficulty Verified 05/12/25 17:41 Breathing Penicillins Allergy Mild Hives Verified 05/12/25 17:41 cephalexin (From Keflex) Allergy Blurry Verified 05/12/25 17:41 Vision Vital Signs Vital Signs - 24 hr 05/12/25 20:00 05/12/25 22:00 05/13/25 06:00 Temperature 98.9 F 98.9 F Pulse Rate 104 H 102 H Respiratory Rate 16 16 Blood Pressure 127/88 144/96 H Pulse Oximetry 97 96 Oxygen Delivery Room Air 05/13/25 08:00 05/13/25 14:00 Temperature 97.2 F L Pulse Rate 92 Respiratory Rate 18 Blood Pressure 144/92 H Pulse Oximetry 97 Oxygen Delivery Room Air Exam Const: General: comfortable and no acute distress HENMT: Face/Nose/Sinus: Normal nares present Eyes: General: appearance normal, both eyes and all related structures Neck: Neck: supple Resp: Auscultation: clear to auscultation bilaterally Cardio: Rate: regular rate Rhythm: regular rhythm GI: Inspection: non-distended GI Palp: Yes Soft to palpation and Yes Tenderness to palpation present (GI) Auscultation: normal bowel sounds Skin: General skin exam: normal color Neuro: Speech: normal speech Extrem: General: normal to inspection Psych: Mental Status: mental status grossly normal Results Labs 05/13/25 07:44 05/13/25 07:44 Labs: Short CBC 05/13/25 Range/Units 07:44 WBC 4.7 (4.5-10.0) K/mm3 Hgb 11.0 L D (12.0-15.0) g/dL Hct 31.9 L (37.0-47.0) % Plt Count 98 L (150-375) k/mm3 BMP 05/13/25 07:44 Sodium 127 L Potassium 3.4 Chloride 102 Carbon Dioxide 20 L BUN 27 H Creatinine 3.41 H Glucose 86 Calcium 7.4 L Cardiac Enzymes 05/12/25 Range/Units 19:50 Total Creatine Kinase 134 (30-135) U/L Liver Function 05/13/25 Range/Units 07:44 Total Bilirubin 1.6 H (0.2-1.3) mg/dL AST > 7500 H (14-36) U/L ALT 3130 H (6-35) U/L Alkaline Phosphatase 111 (38-126) U/L Albumin 2.9 L (3.5-5.1) g/dL Urine 05/13/25 Range/Units 01:19 Urine Color Dark yellow (Yellow) Urine Appearance Turbid H (Clear) Urine pH 5.0 (5.0-9.0) Ur Specific [place] 1.012 (1.001-1.035) Urine Protein 2+ H (Negative) mg/dL Urine Glucose (UA) Trace H (Negative) mg/dL
[2025-05-13 19:24] LABS: Cannabinoid Screen Urine Negative (Negative)
[2025-05-13 20:38] VITALS: BP 174/116; PULSE 101; RESP 16; TEMP 37.3; O2SAT 99
[2025-05-13] MEDS: ENALAPRILAT 1.25 MG/ML VIAL IV PUSH (21:31)
--- NOTE | 2025-05-14 06:59 | P.TS_ITS ---
Transfer Discharge Sum: Prov Provider Date of admission: 05/13/25 10:12 Primary care physician: Arron Funes, Admitting clinician: Ernestine White MD Consults: 05/12/25 Consult to Physician Routine Comment: Left VM for 05/12 [id number] ([facility]) Consulting Provider: Charli Garcia calliope player/MD group to consult: GI Reason for consultation: transaminitis, pancreatitis, BRBPR Has provider been notified: Yes Receiving physician/facility: [facility] - Medicine team DS: Admitting Diagnosis Discharge Date 05/13/25 Admitting Diagnosis Transaminitis, Pancreatitis DS: Discharge Diagnosis Discharge Diagnosis (1) Pancreatitis: Qualifiers: Chronicity: acute Pancreatitis type: unspecified pancreatitis type Acute pancreatitis complication: no infection or necrosis Qualified Code(s): K85.90 - Acute pancreatitis without necrosis or infection, unspecified Code(s): K85.90 - Acute pancreatitis without necrosis or infection, unspecified Status: Acute (2) Transaminitis: Code(s): R74.01 - Elevation of levels of liver transaminase levels Status: Acute (3) GI bleed: Qualifiers: GI bleed type/associated pathology: unspecified gastrointestinal hemorrhage type Qualified Code(s): K92.2 - Gastrointestinal hemorrhage, unspecified Code(s): K92.2 - Gastrointestinal hemorrhage, unspecified Status: Acute (4) ERIWN (acute kidney injury): Code(s): N17.9 - Acute kidney failure, unspecified Status: Acute (5) SIRS (systemic inflammatory response syndrome): Code(s): R65.10 - Systemic inflammatory response syndrome (SIRS) of non-infectious origin without acute organ dysfunction Status: Acute Transfer Discharge Sum: Med Medications Active and Home Medications: Home Medications No Home Medications 05/12/25 [History Confirmed 05/12/25] Transfer Discharge Sum: Hosp Hospital Course Hospital course: HPI: Judy Davis is a 35 year old female with PMH of tubal ligation, cervical cancer, HPV, and multiple colposcopies presents here with generalized abdominal pain. The patient presents here from home on 05/12. Abdominal pain started on Sunday, mild. Thought it was due to indigestion from wings eaten the day prior. Then on Sunday she began having nausea and vomiting, tried to eat soup but vomited that back up. Then tried Pedialyte on Sunday and was for the most part able to keep that down. Reports there was blood in her emesis this morning. Blood in her stool as well - BRB. BM solid, hard. No history of hemorrhoids that she knows of. Not hard to pass stool. Not on cholesterol medication, weight loss medication, occasional alcohol use (once weekly). No previous history of IV drug use. Pain in her abdomen is described as sharp/squeezing, intermittent. Pain now more so in her epigastric region and dull, some radiation into her shoulder blades (more so on the left). Denies FH of colon cancers or any other cancers. Personal history of cervical cancer. Initial VS at presentation: 98.3? F, HR 120, R 16, 136/88, and 100% on RA. ED workup showed: WBC 10.5, no anemia, sodium 133, creatinine 1.94/BUN 18/GFR 29 (previously 0.6 and GFR >60 in 2022), lactic 2.6, INR 1.9, total bilirubin 2.4, AST pending, ALT greater than 3750, lipase 875. HCG negative. CT of the abdomen/pelvis showed no acute findings. Hospital Course: Initial evaluation revealed tachycardia, acute kidney injury (creatinine 1.94, GFR 29), hyponatremia, and severe transaminitis (AST >7500, ALT >3750), with h yperbilirubinemia and coagulopathy (INR 1.9). Lipase was moderately elevated (875), and imaging (CT abdomen/pelvis and RUQ ultrasound) was unremarkable for acute intra-abdominal pathology. The patient was initially managed for acute pancreatitis, transaminitis, GI bleed, ERWIN, and SIRS, with supportive care including IV fluids, pain control, antiemetics, and GI consultation. Despite supportive measures, her renal function worsened (creatinine increased to 3.41, BUN 27), and she developed thrombocytopenia (platelets 98), worsening coagulopathy, and hypoalbuminemia. On further history, it was discovered that the patient had been taking excessive doses of acetaminophen (500 mg, 3 tablets every 8 hours for 4 days) for migraines prior to symptom onset. This clarified the diagnosis as acute liver failure secondary to unintentional acetaminophen overdose, complicated by acute renal failure, coagulopathy, and thrombocytopenia. N-acetylcysteine (mucomyst) was initiated per protocol. I discussed the case with Dr. Capellan who recommended transfer to hepatology team at [facility] for consideration of liver transplant, with transfer to a tertiary care center arranged. Throughout her hospitalization, the patient remained hemodynamically stable, afebrile, and without encephalopathy, but with persistent laboratory evidence of multi-organ dysfunction. The case highlights the importance of thorough medication history and early recognition of acetaminophen toxicity in patients presenting with acute liver failure. Patient Condition: Stable Time Spent with Patient Time attestation: Total time spent providing and/or coordinating transfer services: 30 Exam Const: General: comfortable and no acute distress Other: , female, nontoxic appearance HENMT: Face/Nose/Sinus: Normal nares present Mouth: Yes moist mucous membranes Eyes: General: appearance normal, both eyes and all related structures Sclera: sclerae normal Pupils: Equal, round and reactive pupils present EOM: EOMs intact bilaterally Resp: Effort & Inspection: normal respiratory effort Auscultation: clear to auscultation bilaterally Cardio: Rate: tachycardic Rhythm: regular rhythm Other: S1-S2 present without murmur, rub, ectopy GI: Other: Abdomen soft, nondistended. Tender in the epigastric region. Normoactive bowel sounds in all quadrants. Skin: General skin exam: normal color and no rashes or lesions noted Wounds: no wounds Neuro: Cranial nerves: Yes Equal, round and reactive pupils present Speech: normal speech Motor exam (neuro): 5/5 motor strength present throughout Sensory Exam: normal sensation Extrem: General: normal to inspection Psych: Mental Status: mental status grossly normal Affect: normal affect Other: Good insight and judgment, very pleasant DS: Data Data Completed and Pending Labs on day of discharge: Labs from last 24 hours 05/13/25 05/13/25 05/13/25 18:28 15:29 07:44 WBC 4.7 RBC 3.33 L Hgb 11.0 L D Hct 31.9 L MCV 95.8 MCH 33.0 MCHC 34.5 RDW 12.8 Plt Count 98 L MPV 10.6 H Immature Gran % (Auto) 0.9 H Neut % (Auto) 82.4 H Lymph % (Auto) 9.8 L Randall % (Auto) 4.1 Eos % (Auto) 2.4 Baso % (Auto) 0.4 Lymph # (Auto) 0.46 L Randall # (Auto) 0.2 Eos # (Auto) 0.1 Baso # (Auto) 0.0 Abs Immat Gran (auto) 0.04 H Absolute Neuts (auto) 3.9 Absolute Nucleated RBC 0.000 Nucleated RBC % 0.0 % Immature Plt Fraction 4.6 Sodium 127 L Potassium 3.4 Chloride 102 Carbon Dioxide 20 L Anion Gap 5 BUN 27 H Creatinine 3.41 H Estim Creat Clear Calc 18 Estimated GFR 15 L Glucose 86 Calcium 7.4 L Total Bilirubin 1.6 H AST > 7500 H ALT 3130 H Alkaline Phosphatase 111 Total Protein 5.6 L Albumin 2.9 L Ceruloplasmin Pending Triglycerides 289 H Cholesterol 96 LDL Cholesterol Direct < 30 HDL Direct 28 Lipase 582 H Urine Opiates Screen Positive A Urine Methadone Screen Negative Acetaminophen < 10 L Ur Barbiturates Screen Negative Ur Phencyclidine Scrn Negative Ur Amphetamine Screen Negative U Benzodiazepines Scrn Negative Urine Cocaine Screen Negative U Cannabinoids Screen Negative
== END 2025-05-13 21:35 | disposition short-term general hospital (02) | DRG 812 ==
LOC: ANHED 15:19 → ANH3MEDSUR 16:14
PROVIDERS: Emergency Medicine; Internal Medicine Gastroenterology; Physician Assistant; Student in an Organized Health Care Education/Training Program; Admitting Provider Internal Medicine; Emergency Provider Emergency Medicine; PCP Internal Medicine; Visit Provider Physician Assistant
DX: T39.1X1A Poisoning by 4-Aminophenol derivatives, accidental (unintentional), initial encounter (principal); K71.10 Toxic liver disease with hepatic necrosis, without coma; K85.90 Acute pancreatitis without necrosis or infection, unspecified; N17.9 Acute kidney failure, unspecified; K92.2 Gastrointestinal hemorrhage, unspecified; E86.0 Dehydration; D68.9 Coagulation defect, unspecified; D69.6 Thrombocytopenia, unspecified; F10.90 Alcohol use, unspecified, uncomplicated; Z85.41 Personal history of malignant neoplasm of cervix uteri; Z87.42 Personal history of other diseases of the female genital tract; Z87.891 Personal history of nicotine dependence
CPT/HCPCS: 36415; 74176; 76705; 80053; 80061; 80074; 80143; 80307; 81001; 81025; 82390; 82550; 82570; 83605; 83690; 84145; 84156; 84540; 85025; 85055; 85610; 85730; 87040; 96361; 96374; 96375; 96376; 99285; A9270; G0378; J0132; J1885; J2405; J2470; J7030; J7060; J7120